=== PATIENT | female | born 1945 | race African-American/Black ===

== ENCOUNTER 2018-08-24 12:47 | Inpatient (IN) | payer MEDICARE, BC ==
[~2018-08-24] VITALS: Ht 165 cm; Wt 85.7 kg
[2018-08-24] VITALS (31 sets, daily range): BP systolic 96–147; BP diastolic 69–88
[2018-08-24] MEDS ORDERED: SUCCINYLCHOLINE CHLORIDE 200MG/10ML IV ONE ×2 (13:11→13:15)
[2018-08-24] MEDS ORDERED: ONDANSETRON HCL 4MG/2ML INJ ONE (13:14)
[2018-08-24] MEDS ORDERED: SODIUM CHLORIDE 0.9% 1,000 ML IV ONE (13:15)
[2018-08-24 13:46] LABS: BASOPHILS % 0.1 % (0.0-2.0); HEMATOCRIT. 39.7 % (36.0-48.0); HEMOGLOBIN. 13.2 g/dL (12.0-16.0); LYMPHOCYTES % 15.8 % (20.0-50.0); MEAN CORPUSCULAR HEMOGLOBIN 27.4 pg (28.0-32.0); MEAN CORPUSCULAR VOLUME 82.4 fL (81.0-99.0); MEAN PLATELET VOLUME 10.2 fl (7.4-10.4); MONOCYTES % 0.7 % (2.0-8.0); NEUTROPHILS % 83.4 % (40.0-76.0); PLATELET 207 x1000/uL (130-400); RED BLOOD CELL COUNT 4.81 mill/uL (4.2-5.4); RED CELL DISTRIBUTION WIDTH 14.7 % (11.6-14.6)
[2018-08-24 13:49] LABS: INR 1.1; PROTHROMBIN TIME 11.3 sec (9.6-11.0)
[2018-08-24 13:52] LABS: CHLORIDE 104 mEq/L (98-107)
[2018-08-24 13:56] LABS: ETHANOL BLOOD < 10 mg/dL
[2018-08-24 14:14] LABS: CREATINE KINASE 2143 IU/L (26-192)
[2018-08-24 14:27] LABS: CLARITY URINE CLEAR (CLEAR); COLOR URINE YELLOW (YELLOW); KETONES URINE NEGATIVE (NEGATIVE); LEUKOCYTE ESTERASE URINE NEGATIVE (NEGATIVE); NITRITE URINE NEGATIVE (NEGATIVE); OCCULT BLOOD URINE 3+ (NEGATIVE); PH URINE 5.5 (4.5-8.0); PROTEIN URINE 1+ (NEGATIVE); SPECIFIC GRAVITY URINE 1.012 (1.005-1.030); UROBILINOGEN URINE 0.2 E.U./dL (0.2-1.0)
[2018-08-24] MEDS ORDERED: ONDANSETRON HCL 4MG/2ML INJ IV PRN (14:30)
[2018-08-24] MEDS ORDERED: HYDROCODONE/ACETAMINOPHEN 5/325MG TABLET PO PRN (14:30)
[2018-08-24] MEDS ORDERED: NA PHOS,M-B/NA PHOS,DI-BA ENEMA 118ML PR PRN (14:30)
[2018-08-24] MEDS ORDERED: ACETAMINOPHEN 325MG TABLET PO PRN (14:30)
[2018-08-24] MEDS ORDERED: MORPHINE SULFATE 4 MG/ML CPJ (NOT FOR IM USE) IV PRN (14:30)
[2018-08-24] MEDS ORDERED: IPRATROPIUM/ALBUTEROL 0.5-3(2.5)MG/3ML NEB INH PRN (14:30)
[2018-08-24] MEDS ORDERED: DIPHENHYDRAMINE 50MG/ML VIAL IV PRN (14:30)
[2018-08-24] MEDS ORDERED: LORAZEPAM 2MG/ML CPJ IV PRN (14:30)
[2018-08-24] MEDS ORDERED: LEVOFLOXACIN 500MG PREMIX 100 ML IV SCH (14:30)
[2018-08-24] MEDS ORDERED: GUAIFENESIN 200MG/10ML SUGAR FREE UDC PO PRN (14:30)
[2018-08-24] MEDS ORDERED: MAGNESIUM/ALUMINUM HYDROXIDE/SIMETHICONE 30ML UDC PO PRN (14:30)
[2018-08-24 15:14] LABS: *AMPHETAMINES SCREEN URINE NEGATIVE (NEGATIVE); *BARBITURATES SCREEN URINE NEGATIVE (NEGATIVE); *BENZODIAZEPINES SCREEN URINE NEGATIVE (NEGATIVE)
[2018-08-24 15:15] LABS: *COCAINE SCREEN URINE NEGATIVE (NEGATIVE); CANNABINOID URINE SCREEN NEGATIVE (NEGATIVE); METHADONE URINE SCREEN NEGATIVE (NEGATIVE); OPIATES URINE SCREEN NEGATIVE (NEGATIVE); PHENCYCLIDINE URINE SCREEN NEGATIVE (NEGATIVE)
[2018-08-24 15:24] LABS: BG BASE EXCESS -1.4 mmol/L (-2.0-2.0); BG CARBOXYHEMOGLOBIN 0.3 % (0.5-1.5); BG DEOXYHEMOGLOBIN 0.6 % (0.0-5.0); BG FRACTION INSPIRED OXYGEN 100; BG HCO3 ACT 23.2 mmol/L (22.0-26.0); BG METHEMOGLOBIN 0.3 % (0.0-1.5); BG OXYGEN SATURATION 99.4 % (92.0-98.5); BG OXYHEMOGLOBIN 98.8 % (94.0-97.0); BG PCO2 39.1 mmHg (35.0-45.0); BG PH 7.392 (7.350-7.450); BG PO2 300.1 mmHg (75.0-100.0); BG SAMPLE SITE RIGHT BRACHIAL; BG TIDAL VOLUME(mL) 500 mL; BG TOTAL HEMOGLOBIN 13.9 g/dL (12.0-18.0); BG VENT MODE VENT - A/C; BG VENT RATE 14 set
[2018-08-24] MEDS ORDERED: PIPERACILLIN/TAZ 3.375G PREMIX 50 ML IV SCH (15:30)
[2018-08-24] MEDS: DEXT 5%/0.45% NACL 1000ML 1,000 ML IV SCH (16:59)
[2018-08-24] MEDS ORDERED: FOLIC ACID 1 MG, THIAMINE HCL 100 MG, MVI, ADULT NO.1 10 ML in DEXTROSE 5% WATER 1,000 ML IV SCH ×4 (17:00)
[2018-08-24] MEDS: PIPERACILLIN/TAZ 2.25G PREMIX 50 ML IV SCH ×2 (17:22→23:00)
[2018-08-24] MEDS: PANTOPRAZOLE SODIUM 40 MG/VIAL IV SCH (17:23)
[2018-08-24] MEDS ORDERED: LEVOFLOXACIN 500MG PREMIX 100 ML IV NR (18:00)
[2018-08-24] MEDS: ENOXAPARIN 40MG/0.4ML SYR SUBCUT SCH (20:34)
[2018-08-24] MEDS: PROPOFOL 10MG/ML 100ML 100 ML IV PRN (20:35)
[2018-08-24] MEDS: IPRATROPIUM/ALBUTEROL 0.5-3(2.5)MG/3ML NEB HHN SCH (21:03)
[2018-08-25] VITALS (94 sets, daily range): BP systolic 103–157; BP diastolic 67–98
[2018-08-25] MEDS: DEXT 5%/0.45% NACL 1000ML 1,000 ML IV SCH (02:30)
[2018-08-25] MEDS: IPRATROPIUM/ALBUTEROL 0.5-3(2.5)MG/3ML NEB HHN SCH ×4 (04:15→20:17)
[2018-08-25] MEDS: PROPOFOL 10MG/ML 100ML 100 ML IV PRN ×2 (04:17→17:48)
[2018-08-25 05:39] LABS: HEMATOCRIT. 40.9 % (36.0-48.0); HEMOGLOBIN. 13.3 g/dL (12.0-16.0); MEAN CORPUSCULAR HEMOGLOBIN 27.2 pg (28.0-32.0); MEAN CORPUSCULAR VOLUME 83.2 fL (81.0-99.0); MEAN PLATELET VOLUME 10.2 fl (7.4-10.4); MONOCYTES % 6.6 % (2.0-8.0); NEUTROPHILS % 85.4 % (40.0-76.0); PLATELET 178 x1000/uL (130-400); RED BLOOD CELL COUNT 4.91 mill/uL (4.2-5.4); RED CELL DISTRIBUTION WIDTH 14.6 % (11.6-14.6)
[2018-08-25] MEDS: PIPERACILLIN/TAZ 2.25G PREMIX 50 ML IV SCH ×4 (05:43→22:11)
[2018-08-25 05:45] LABS: CHLORIDE 102 mEq/L (98-107)
[2018-08-25 05:52] LABS: LDL CHOLESTEROL 113 mg/dL (5-100)
[2018-08-25 05:53] LABS: HDL CHOLESTEROL 56 mg/dL (40-59)
[2018-08-25 05:54] LABS: T4 FREE 1.47 ng/dL (0.76-1.46)
[2018-08-25 09:08] LABS: BG BASE EXCESS -0.8 mmol/L (-2.0-2.0); BG CARBOXYHEMOGLOBIN 0.3 % (0.5-1.5); BG DEOXYHEMOGLOBIN 1.9 % (0.0-5.0); BG FRACTION INSPIRED OXYGEN 40; BG HCO3 ACT 23.4 mmol/L (22.0-26.0); BG METHEMOGLOBIN 0.2 % (0.0-1.5); BG OXYGEN SATURATION 98.1 % (92.0-98.5); BG OXYHEMOGLOBIN 97.6 % (94.0-97.0); BG PCO2 37.2 mmHg (35.0-45.0); BG PH 7.417 (7.350-7.450); BG SAMPLE SITE RIGHT RADIAL; BG TIDAL VOLUME(mL) 500 mL; BG TOTAL HEMOGLOBIN 12.2 g/dL (12.0-18.0); BG VENT MODE VENT - A/C; BG VENT RATE 14 set
[2018-08-25] MEDS: PANTOPRAZOLE SODIUM 40 MG/VIAL IV SCH (09:33)
[2018-08-25] MEDS: ASPIRIN 81MG EC TABLET PO SCH (09:34)
[2018-08-25] MEDS ORDERED: SODIUM CHLORIDE 0.9% 500 ML IV ONE (10:15)
[2018-08-25] MEDS ORDERED: LIDOCAINE HCL 1% 20ML VIAL (Pyxis) INJ ONE (13:09)
[2018-08-25 13:56] LABS: CREATINE KINASE 5257 IU/L (26-192)
[2018-08-25] MEDS ORDERED: SODIUM BICARBONATE 5MEQ SYR 50 MEQ in DEXT 5%/0.45% NACL 1000ML 1,000 ML IV SCH (15:52)
[2018-08-25] MEDS: SODIUM BICARBONATE 50 MEQ in DEXT 5%/0.45% NACL 1000ML 1,000 ML IV SCH (17:43)
[2018-08-25] MEDS ORDERED: LEVOFLOXACIN 250MG PREMIX 50 ML IV SCH (18:00)
[2018-08-25] MEDS ORDERED: FOLIC ACID 1 MG, THIAMINE HCL 100 MG, MVI, ADULT NO.1 10 ML in DEXTROSE 5% WATER 1,000 ML IV SCH ×4 (18:00)
[2018-08-25] MEDS: ENOXAPARIN 40MG/0.4ML SYR SUBCUT SCH (20:02)
[2018-08-25] MEDS ORDERED: METOPROLOL TARTRATE 5MG/5ML VIAL IV NR (22:00)
[2018-08-26] VITALS (97 sets, daily range): BP systolic 109–192; BP diastolic 63–162
[2018-08-26] MEDS: IPRATROPIUM/ALBUTEROL 0.5-3(2.5)MG/3ML NEB HHN SCH ×7 (00:08→21:25)
[2018-08-26] MEDS: PROPOFOL 10MG/ML 100ML 100 ML IV PRN ×4 (02:02→19:03)
[2018-08-26] MEDS: SODIUM BICARBONATE 50 MEQ in DEXT 5%/0.45% NACL 1000ML 1,000 ML IV SCH ×3 (03:28→23:43)
[2018-08-26 05:47] LABS: BASOPHILS % 0.1 % (0.0-2.0); HEMATOCRIT. 34.5 % (36.0-48.0); HEMOGLOBIN. 11.2 g/dL (12.0-16.0); LYMPHOCYTES % 8.2 % (20.0-50.0); MEAN CORPUSCULAR VOLUME 83.1 fL (81.0-99.0); MEAN PLATELET VOLUME 10.3 fl (7.4-10.4); MONOCYTES % 7.8 % (2.0-8.0); NEUTROPHILS % 83.9 % (40.0-76.0); PLATELET 147 x1000/uL (130-400); RED BLOOD CELL COUNT 4.16 mill/uL (4.2-5.4); RED CELL DISTRIBUTION WIDTH 15.1 % (11.6-14.6)
[2018-08-26] MEDS: METOPROLOL TARTRATE 5MG/5ML VIAL IV SCH ×4 (05:58→23:42)
[2018-08-26] MEDS: PIPERACILLIN/TAZ 2.25G PREMIX 50 ML IV SCH ×4 (05:58→23:41)
[2018-08-26] MEDS ORDERED: METOPROLOL TARTRATE 5MG/5ML VIAL IV SCH (06:00)
[2018-08-26 07:00] LABS: VITAMIN B12 SERUM 1437 pg/mL (211-911)
[2018-08-26 08:09] LABS: BG BASE EXCESS 4.8 mmol/L (-2.0-2.0); BG CARBOXYHEMOGLOBIN 0.2 % (0.5-1.5); BG DEOXYHEMOGLOBIN 0.9 % (0.0-5.0); BG FRACTION INSPIRED OXYGEN 50; BG HCO3 ACT 29.4 mmol/L (22.0-26.0); BG METHEMOGLOBIN 0.4 % (0.0-1.5); BG OXYGEN SATURATION 99.1 % (92.0-98.5); BG OXYHEMOGLOBIN 98.5 % (94.0-97.0); BG PCO2 43.3 mmHg (35.0-45.0); BG PH 7.449 (7.350-7.450); BG SAMPLE SITE LEFT RADIAL; BG TIDAL VOLUME(mL) 500 mL; BG TOTAL HEMOGLOBIN 11.6 g/dL (12.0-18.0); BG VENT MODE VENT - A/C; BG VENT RATE 14 set
[2018-08-26] MEDS: FOLIC ACID 1MG TABLET PO SCH (08:10)
[2018-08-26] MEDS: DOCUSATE SODIUM 100MG CAPSULE PO PRN (08:10)
[2018-08-26] MEDS: MULTIVITAMINS,THER W-MINERALS TABLET PO SCH (08:10)
[2018-08-26] MEDS: THIAMINE HCL 100MG TABLET PO SCH (08:10)
[2018-08-26] MEDS: PANTOPRAZOLE SODIUM 40 MG/VIAL IV SCH (08:10)
[2018-08-26] MEDS: ASPIRIN 81MG EC TABLET PO SCH (08:10)
[2018-08-26] MEDS: DILTIAZEM HCL 30MG TABLET NG SCH ×3 (13:00→23:42)
[2018-08-26] MEDS ORDERED: KCL 20MEQ/100ML PREMIX 100 ML IV SCH (14:00)
[2018-08-26] MEDS: ENOXAPARIN 40MG/0.4ML SYR SUBCUT SCH (20:38)
[2018-08-27] VITALS (99 sets, daily range): BP systolic 103–185; BP diastolic 59–123
[2018-08-27] MEDS: IPRATROPIUM/ALBUTEROL 0.5-3(2.5)MG/3ML NEB HHN SCH ×5 (00:31→15:25)
[2018-08-27] MEDS: PROPOFOL 10MG/ML 100ML 100 ML IV PRN ×5 (03:13→23:43)
[2018-08-27 04:51] LABS: BASOPHILS % 0.1 % (0.0-2.0); EOSINOPHILS % 0.1 % (0.0-5.0); HEMATOCRIT. 29.8 % (36.0-48.0); HEMOGLOBIN. 9.8 g/dL (12.0-16.0); LYMPHOCYTES % 10.8 % (20.0-50.0); MEAN CORPUSCULAR HEMOGLOBIN 27.6 pg (28.0-32.0); MEAN CORPUSCULAR VOLUME 83.8 fL (81.0-99.0); MEAN PLATELET VOLUME 10.8 fl (7.4-10.4); MONOCYTES % 7.5 % (2.0-8.0); NEUTROPHILS % 81.5 % (40.0-76.0); PLATELET 119 x1000/uL (130-400); RED BLOOD CELL COUNT 3.55 mill/uL (4.2-5.4); RED CELL DISTRIBUTION WIDTH 14.9 % (11.6-14.6)
[2018-08-27 05:08] LABS: CHLORIDE 113 mEq/L (98-107)
[2018-08-27] MEDS: DILTIAZEM HCL 30MG TABLET NG SCH ×3 (05:50→18:41)
[2018-08-27] MEDS: PIPERACILLIN/TAZ 2.25G PREMIX 50 ML IV SCH ×2 (05:50→11:32)
[2018-08-27] MEDS: METOPROLOL TARTRATE 5MG/5ML VIAL IV SCH ×3 (05:51→18:38)
[2018-08-27] MEDS: MULTIVITAMINS,THER W-MINERALS TABLET PO SCH (08:14)
[2018-08-27] MEDS: PANTOPRAZOLE SODIUM 40 MG/VIAL IV SCH (08:14)
[2018-08-27] MEDS: FOLIC ACID 1MG TABLET PO SCH (08:14)
[2018-08-27] MEDS: THIAMINE HCL 100MG TABLET PO SCH (08:14)
[2018-08-27] MEDS: ASPIRIN 81MG EC TABLET PO SCH (08:14)
[2018-08-27 08:51] LABS: BG CARBOXYHEMOGLOBIN 0.3 % (0.5-1.5); BG FRACTION INSPIRED OXYGEN 45; BG METHEMOGLOBIN 0.4 % (0.0-1.5); BG OXYHEMOGLOBIN 98.3 % (94.0-97.0); BG PCO2 38.6 mmHg (35.0-45.0); BG PH 7.462 (7.350-7.450); BG PO2 178.6 mmHg (75.0-100.0); BG SAMPLE SITE LEFT RADIAL; BG TIDAL VOLUME(mL) 500 mL; BG VENT MODE VENT - A/C; BG VENT RATE 14 set
[2018-08-27] MEDS ORDERED: KCL 20MEQ/100ML PREMIX 100 ML IV NR (13:00)
[2018-08-27] MEDS: SODIUM BICARBONATE 50 MEQ in DEXT 5%/0.45% NACL 1000ML 1,000 ML IV SCH ×2 (14:02→23:39)
[2018-08-27] MEDS ORDERED: DILTIAZEM HCL 5MG/ML 5ML VIAL IV NR (15:15)
[2018-08-27] MEDS ORDERED: DILTIAZEM HCL 125 MG in DEXT 5% WATER 100 ML IV PRN (15:15)
[2018-08-27] MEDS: PIPERACILLIN/TAZ 3.375G PREMIX 50 ML IV SCH (18:38)
[2018-08-27] MEDS: ENOXAPARIN 40MG/0.4ML SYR SUBCUT SCH (21:31)
[2018-08-28] VITALS (88 sets, daily range): BP systolic 106–193; BP diastolic 61–105
[2018-08-28] MEDS: IPRATROPIUM/ALBUTEROL 0.5-3(2.5)MG/3ML NEB HHN SCH ×6 (00:56→21:32)
[2018-08-28] MEDS: DILTIAZEM HCL 30MG TABLET NG SCH ×3 (01:00→11:35)
[2018-08-28] MEDS: PIPERACILLIN/TAZ 3.375G PREMIX 50 ML IV SCH ×2 (01:12→06:18)
[2018-08-28] MEDS: METOPROLOL TARTRATE 5MG/5ML VIAL IV SCH ×5 (01:17→18:20)
[2018-08-28] MEDS: PROPOFOL 10MG/ML 100ML 100 ML IV PRN ×2 (03:01→07:12)
[2018-08-28 05:40] LABS: BASOPHILS % 0.5 % (0.0-2.0); EOSINOPHILS % 1.4 % (0.0-5.0); HEMATOCRIT. 31.8 % (36.0-48.0); HEMOGLOBIN. 10.4 g/dL (12.0-16.0); MEAN CORPUSCULAR HEMOGLOBIN 27.4 pg (28.0-32.0); MEAN CORPUSCULAR VOLUME 84.2 fL (81.0-99.0); MEAN PLATELET VOLUME 10.2 fl (7.4-10.4); MONOCYTES % 8.4 % (2.0-8.0); NEUTROPHILS % 69.7 % (40.0-76.0); PLATELET 114 x1000/uL (130-400); RED BLOOD CELL COUNT 3.78 mill/uL (4.2-5.4); RED CELL DISTRIBUTION WIDTH 14.9 % (11.6-14.6)
[2018-08-28 05:47] LABS: CHLORIDE 109 mEq/L (98-107)
[2018-08-28] MEDS: SODIUM BICARBONATE 50 MEQ in DEXT 5%/0.45% NACL 1000ML 1,000 ML IV SCH (06:54)
[2018-08-28 09:01] LABS: BG BASE EXCESS 3.4 mmol/L (-2.0-2.0); BG DEOXYHEMOGLOBIN 1.2 % (0.0-5.0); BG FRACTION INSPIRED OXYGEN 40; BG HCO3 ACT 28.2 mmol/L (22.0-26.0); BG METHEMOGLOBIN 0.3 % (0.0-1.5); BG OXYGEN SATURATION 98.8 % (92.0-98.5); BG OXYHEMOGLOBIN 98.5 % (94.0-97.0); BG PCO2 43.7 mmHg (35.0-45.0); BG PH 7.428 (7.350-7.450); BG PO2 147.7 mmHg (75.0-100.0); BG SAMPLE SITE RIGHT RADIAL; BG TIDAL VOLUME(mL) 500 mL; BG TOTAL HEMOGLOBIN 11.7 g/dL (12.0-18.0); BG VENT MODE VENT - A/C; BG VENT RATE 14 set
[2018-08-28] MEDS: PANTOPRAZOLE SODIUM 40 MG/VIAL IV SCH (09:24)
[2018-08-28] MEDS: THIAMINE HCL 100MG TABLET PO SCH (09:25)
[2018-08-28] MEDS: DOCUSATE SODIUM 100MG CAPSULE PO PRN (09:25)
[2018-08-28] MEDS: CLONIDINE 0.1MG TABLET PO PRN ×2 (09:25→18:19)
[2018-08-28] MEDS: MULTIVITAMINS,THER W-MINERALS TABLET PO SCH (09:25)
[2018-08-28] MEDS: FOLIC ACID 1MG TABLET PO SCH (09:25)
[2018-08-28] MEDS: ASPIRIN 81MG EC TABLET PO SCH (09:25)
[2018-08-28] MEDS: LEVOFLOXACIN 750MG PREMIX 150 ML IV SCH (11:26)
[2018-08-28] MEDS: DEXT 5%/0.45% NACL 1000ML 1,000 ML IV SCH (11:26)
[2018-08-28 11:36] LABS: BG BASE EXCESS 3.9 mmol/L (-2.0-2.0); BG CARBOXYHEMOGLOBIN 0.3 % (0.5-1.5); BG DEOXYHEMOGLOBIN 1.4 % (0.0-5.0); BG FRACTION INSPIRED OXYGEN 40; BG HCO3 ACT 28.1 mmol/L (22.0-26.0); BG METHEMOGLOBIN 0.2 % (0.0-1.5); BG OXYGEN SATURATION 98.6 % (92.0-98.5); BG OXYHEMOGLOBIN 98.1 % (94.0-97.0); BG PCO2 40.8 mmHg (35.0-45.0); BG PH 7.456 (7.350-7.450); BG PO2 130.3 mmHg (75.0-100.0); BG PRESSURE SUPPORT 8; BG SAMPLE SITE RIGHT RADIAL; BG TOTAL HEMOGLOBIN 10.9 g/dL (12.0-18.0); BG VENT MODE VENT - CPAP
[2018-08-28 12:11] LABS: CREATINE KINASE 1558 IU/L (26-192)
[2018-08-28 16:36] LABS: BG BASE EXCESS 5.5 mmol/L (-2.0-2.0); BG CARBOXYHEMOGLOBIN 0.8 % (0.5-1.5); BG DEOXYHEMOGLOBIN 1.7 % (0.0-5.0); BG FRACTION INSPIRED OXYGEN 32; BG METHEMOGLOBIN 0.2 % (0.0-1.5); BG OXYGEN SATURATION 98.3 % (92.0-98.5); BG OXYHEMOGLOBIN 97.3 % (94.0-97.0); BG PCO2 43.1 mmHg (35.0-45.0); BG PO2 113.7 mmHg (75.0-100.0); BG SAMPLE SITE RIGHT RADIAL; BG TOTAL HEMOGLOBIN 11.6 g/dL (12.0-18.0); BG VENT MODE NASAL CANNULA
[2018-08-28] MEDS: DILTIAZEM HCL 90MG TABLET NG SCH ×2 (21:22→22:20)
[2018-08-28] MEDS: ENOXAPARIN 40MG/0.4ML SYR SUBCUT SCH (21:23)
[2018-08-28] MEDS: RACEPINEPHRINE 2.25% 0.5ML NEB VIAL HHN SCH (21:35)
[2018-08-29] VITALS (47 sets, daily range): BP systolic 113–189; BP diastolic 72–112
[2018-08-29] MEDS: IPRATROPIUM/ALBUTEROL 0.5-3(2.5)MG/3ML NEB HHN SCH ×5 (00:19→22:05)
[2018-08-29] MEDS: RACEPINEPHRINE 2.25% 0.5ML NEB VIAL HHN SCH ×2 (00:19→04:42)
[2018-08-29] MEDS: METOPROLOL TARTRATE 5MG/5ML VIAL IV SCH ×2 (00:29→06:00)
[2018-08-29] MEDS: DEXT 5%/0.45% NACL 1000ML 1,000 ML IV SCH ×2 (01:00→14:31)
[2018-08-29 05:41] LABS: BASOPHILS % 0.4 % (0.0-2.0); EOSINOPHILS % 1.3 % (0.0-5.0); LYMPHOCYTES % 18.5 % (20.0-50.0); MEAN CORPUSCULAR HEMOGLOBIN 27.6 pg (28.0-32.0); MEAN PLATELET VOLUME 10.5 fl (7.4-10.4); MONOCYTES % 7.3 % (2.0-8.0); NEUTROPHILS % 72.5 % (40.0-76.0); PLATELET 125 x1000/uL (130-400); RED BLOOD CELL COUNT 3.61 mill/uL (4.2-5.4); RED CELL DISTRIBUTION WIDTH 14.8 % (11.6-14.6)
[2018-08-29] MEDS: DILTIAZEM HCL 90MG TABLET NG SCH (06:00)
[2018-08-29 06:32] LABS: CHLORIDE 107 mEq/L (98-107)
[2018-08-29] MEDS: ASPIRIN 81MG EC TABLET PO SCH (08:27)
[2018-08-29] MEDS: THIAMINE HCL 100MG TABLET PO SCH (08:27)
[2018-08-29] MEDS: MULTIVITAMINS,THER W-MINERALS TABLET PO SCH (08:28)
[2018-08-29] MEDS: PANTOPRAZOLE SODIUM 40 MG/VIAL IV SCH (08:28)
[2018-08-29] MEDS: FOLIC ACID 1MG TABLET PO SCH (08:28)
[2018-08-29] MEDS: CLONIDINE 0.1MG TABLET PO PRN ×2 (09:09→15:16)
[2018-08-29] MEDS ORDERED: METOPROLOL TARTRATE 25MG TABLET PO NR (10:15)
[2018-08-29] MEDS: LEVOFLOXACIN 750MG PREMIX 150 ML IV SCH (10:32)
[2018-08-29] MEDS: DILTIAZEM HCL 90MG TABLET PO SCH ×2 (11:32→19:13)
[2018-08-29] MEDS ORDERED: DILTIAZEM HCL 90MG TABLET NG SCH (12:00)
[2018-08-29] MEDS ORDERED: HYDRALAZINE HCL 50MG TABLET PO NR (14:30)
[2018-08-29] MEDS: DOCUSATE SODIUM 100MG CAPSULE PO PRN (15:17)
[2018-08-29] MEDS ORDERED: AMLO10TA80 MT (15:23)
[2018-08-29] MEDS ORDERED: METO-411 MT (15:24)
[2018-08-29] MEDS ORDERED: SPIR50TA5 MT (15:26)
[2018-08-29] MEDS ORDERED: OLME20TA22 MT (15:29)
[2018-08-29] MEDS ORDERED: LOSARTAN POTASSIUM 50 MG TABLET PO ONE (15:45)
[2018-08-29] MEDS ORDERED: METOPROLOL TARTRATE 25MG TABLET PO SCH (21:00)
[2018-08-29] MEDS: HYDRALAZINE HCL 50MG TABLET PO SCH (21:06)
[2018-08-29] MEDS: ENOXAPARIN 40MG/0.4ML SYR SUBCUT SCH (21:06)
[2018-08-29] MEDS: METOPROLOL TARTRATE 25MG TABLET PO SCH (21:06)
[2018-08-30] VITALS (7 sets, daily range): BP systolic 127–189; BP diastolic 62–105
[2018-08-30] MEDS: DILTIAZEM HCL 90MG TABLET PO SCH ×4 (00:19→19:49)
[2018-08-30] MEDS: IPRATROPIUM/ALBUTEROL 0.5-3(2.5)MG/3ML NEB HHN SCH ×6 (00:44→20:53)
[2018-08-30] MEDS: DEXT 5%/0.45% NACL 1000ML 1,000 ML IV SCH ×2 (05:24→19:49)
[2018-08-30] MEDS: HYDRALAZINE HCL 50MG TABLET PO SCH ×3 (05:24→21:27)
[2018-08-30 06:30] LABS: CHLORIDE 104 mEq/L (98-107)
[2018-08-30 06:59] LABS: BASOPHILS % 0.3 % (0.0-2.0); EOSINOPHILS % 2.1 % (0.0-5.0); HEMATOCRIT. 28.4 % (36.0-48.0); HEMOGLOBIN. 9.4 g/dL (12.0-16.0); LYMPHOCYTES % 17.6 % (20.0-50.0); MEAN CORPUSCULAR HEMOGLOBIN 27.4 pg (28.0-32.0); MEAN CORPUSCULAR VOLUME 82.9 fL (81.0-99.0); MONOCYTES % 6.7 % (2.0-8.0); NEUTROPHILS % 73.3 % (40.0-76.0); PLATELET 123 x1000/uL (130-400); RED BLOOD CELL COUNT 3.42 mill/uL (4.2-5.4); RED CELL DISTRIBUTION WIDTH 14.5 % (11.6-14.6)
[2018-08-30] MEDS: PANTOPRAZOLE SODIUM 40 MG/VIAL IV SCH (08:52)
[2018-08-30] MEDS: LOSARTAN POTASSIUM 50 MG TABLET PO SCH (08:54)
[2018-08-30] MEDS: ASPIRIN 81MG EC TABLET PO SCH (08:54)
[2018-08-30] MEDS: MULTIVITAMINS,THER W-MINERALS TABLET PO SCH (08:54)
[2018-08-30] MEDS: METOPROLOL TARTRATE 25MG TABLET PO SCH ×2 (08:54→21:27)
[2018-08-30] MEDS: FOLIC ACID 1MG TABLET PO SCH (08:54)
[2018-08-30] MEDS: THIAMINE HCL 100MG TABLET PO SCH (08:54)
[2018-08-30 09:37] LABS: CREATINE KINASE 743 IU/L (26-192)
[2018-08-30] MEDS: LEVOFLOXACIN 750MG PREMIX 150 ML IV SCH (11:22)
[2018-08-30] MEDS ORDERED: POTASSIUM CHLORIDE 20MEQ TABLET SR PO SCH (14:15)
[2018-08-30] MEDS: ENOXAPARIN 40MG/0.4ML SYR SUBCUT SCH (21:27)
[2018-08-31] VITALS: BP 150/88
[2018-08-31] MEDS: IPRATROPIUM/ALBUTEROL 0.5-3(2.5)MG/3ML NEB HHN SCH ×6 (00:57→20:36)
[2018-08-31] MEDS: DILTIAZEM HCL 90MG TABLET PO SCH ×3 (00:57→11:48)
[2018-08-31 04:00] VITALS: BP 114/78
[2018-08-31 06:33] LABS: BASOPHILS % 0.3 % (0.0-2.0); EOSINOPHILS % 1.3 % (0.0-5.0); HEMATOCRIT. 28.1 % (36.0-48.0); HEMOGLOBIN. 9.4 g/dL (12.0-16.0); MEAN CORPUSCULAR HEMOGLOBIN 27.5 pg (28.0-32.0); MEAN CORPUSCULAR VOLUME 82.6 fL (81.0-99.0); MEAN PLATELET VOLUME 9.8 fl (7.4-10.4); MONOCYTES % 7.4 % (2.0-8.0); PLATELET 145 x1000/uL (130-400); RED CELL DISTRIBUTION WIDTH 14.4 % (11.6-14.6)
[2018-08-31] MEDS: HYDRALAZINE HCL 50MG TABLET PO SCH ×3 (06:33→21:10)
[2018-08-31] MEDS: DEXT 5%/0.45% NACL 1000ML 1,000 ML IV SCH ×2 (06:45→21:13)
[2018-08-31 07:55] LABS: CHLORIDE 106 mEq/L (98-107)
[2018-08-31 08:00] VITALS: BP 156/86
[2018-08-31 08:07] LABS: CREATINE KINASE 409 IU/L (26-192)
[2018-08-31] MEDS: PANTOPRAZOLE SODIUM 40 MG/VIAL IV SCH (09:26)
[2018-08-31] MEDS: MULTIVITAMINS,THER W-MINERALS TABLET PO SCH (09:27)
[2018-08-31] MEDS: METOPROLOL TARTRATE 25MG TABLET PO SCH ×2 (09:27→21:11)
[2018-08-31] MEDS: LOSARTAN POTASSIUM 50 MG TABLET PO SCH (09:27)
[2018-08-31] MEDS: ASPIRIN 81MG EC TABLET PO SCH (09:27)
[2018-08-31] MEDS: FOLIC ACID 1MG TABLET PO SCH (09:27)
[2018-08-31] MEDS: THIAMINE HCL 100MG TABLET PO SCH (09:27)
[2018-08-31] MEDS: LEVOFLOXACIN 750MG PREMIX 150 ML IV SCH (11:48)
[2018-08-31 12:00] VITALS: BP 157/86
[2018-08-31 16:00] VITALS: BP 151/81
[2018-08-31] MEDS: DOCUSATE SODIUM 100MG CAPSULE PO PRN (16:12)
[2018-08-31 20:00] VITALS: BP 149/82
[2018-08-31] MEDS: ENOXAPARIN 40MG/0.4ML SYR SUBCUT SCH (21:09)
[2018-09-01] VITALS: BP 162/87
[2018-09-01] MEDS: IPRATROPIUM/ALBUTEROL 0.5-3(2.5)MG/3ML NEB HHN SCH ×6 (00:25→21:00)
[2018-09-01] MEDS: DILTIAZEM HCL 90MG TABLET PO SCH ×5 (02:47→18:15)
[2018-09-01 04:00] VITALS: BP 159/68
[2018-09-01] MEDS: HYDRALAZINE HCL 50MG TABLET PO SCH ×3 (06:01→21:38)
[2018-09-01 08:00] VITALS: BP 117/52
[2018-09-01] MEDS: ASPIRIN 81MG EC TABLET PO SCH (09:00)
[2018-09-01] MEDS: LOSARTAN POTASSIUM 50 MG TABLET PO SCH (09:01)
[2018-09-01] MEDS: MULTIVITAMINS,THER W-MINERALS TABLET PO SCH (09:01)
[2018-09-01] MEDS: FOLIC ACID 1MG TABLET PO SCH (09:01)
[2018-09-01] MEDS: THIAMINE HCL 100MG TABLET PO SCH (09:01)
[2018-09-01] MEDS: METOPROLOL TARTRATE 25MG TABLET PO SCH ×2 (09:02→21:39)
[2018-09-01] MEDS: PANTOPRAZOLE SODIUM 40 MG/VIAL IV SCH (09:02)
[2018-09-01] MEDS: DOCUSATE SODIUM 100MG CAPSULE PO PRN (09:14)
[2018-09-01] MEDS: LEVOFLOXACIN 750MG PREMIX 150 ML IV SCH (11:47)
[2018-09-01 12:00] VITALS: BP 159/88
[2018-09-01 16:00] VITALS: BP 131/70
[2018-09-01 20:00] VITALS: BP 148/85
[2018-09-01] MEDS: ENOXAPARIN 40MG/0.4ML SYR SUBCUT SCH (21:38)
[2018-09-02] VITALS: BP 139/70
[2018-09-02] MEDS: DILTIAZEM HCL 90MG TABLET PO SCH ×3 (01:06→11:37)
[2018-09-02] MEDS: IPRATROPIUM/ALBUTEROL 0.5-3(2.5)MG/3ML NEB HHN SCH ×5 (01:10→16:14)
[2018-09-02 04:00] VITALS: BP 141/82
[2018-09-02] MEDS: HYDRALAZINE HCL 50MG TABLET PO SCH ×2 (06:21→14:24)
[2018-09-02 08:00] VITALS: BP 150/80
[2018-09-02] MEDS: FOLIC ACID 1MG TABLET PO SCH (08:22)
[2018-09-02] MEDS: MULTIVITAMINS,THER W-MINERALS TABLET PO SCH (08:22)
[2018-09-02] MEDS: ASPIRIN 81MG EC TABLET PO SCH (08:23)
[2018-09-02] MEDS: THIAMINE HCL 100MG TABLET PO SCH (08:23)
[2018-09-02] MEDS: LOSARTAN POTASSIUM 50 MG TABLET PO SCH (08:25)
[2018-09-02] MEDS: METOPROLOL TARTRATE 25MG TABLET PO SCH (08:25)
[2018-09-02] MEDS ORDERED: PANTOPRAZOLE 40MG DR TABLET PO SCH (08:43)
[2018-09-02] MEDS: LEVOFLOXACIN 750MG PREMIX 150 ML IV SCH (11:20)
[2018-09-02 12:00] VITALS: BP 157/66
[2018-09-02 16:00] VITALS: BP 136/78
[2018-09-02 16:16] VITALS: BP 136/78
== END 2018-09-02 17:17 | DRG 870 ==
LOC: ER 12:47 → MICUNO 14:23 → EDBEDREQ 14:27 → EDBEDREQTM 14:27 → ENRESERV 15:18 → 5WST 08-29 17:00
PROVIDERS: ADMIT Internal Medicine; ATTEND Internal Medicine
PROC: 5A1955Z Respiratory Ventilation, Greater than 96 Consecutive Hours (ICD-10-PCS; principal; 2018-08-24)
PROC: 0BH17EZ Insertion of Endotracheal Airway into Trachea, Via Natural or Artificial Opening (ICD-10-PCS; 2018-08-24)
PROC: 02HV33Z Insertion of Infusion Device into Superior Vena Cava, Percutaneous Approach (ICD-10-PCS; 2018-08-25)
PROC: B548ZZA Ultrasonography of Superior Vena Cava, Guidance (ICD-10-PCS; 2018-08-25)
DX: A41.59 Other Gram-negative sepsis (principal); G93.41 Metabolic encephalopathy; J69.0 Pneumonitis due to inhalation of food and vomit; J96.00 Acute respiratory failure, unspecified whether with hypoxia or hypercapnia; N17.0 Acute kidney failure with tubular necrosis; J15.0 Pneumonia due to Klebsiella pneumoniae; M62.82 Rhabdomyolysis; I42.1 Obstructive hypertrophic cardiomyopathy; E87.4 Mixed disorder of acid-base balance; E86.0 Dehydration; R65.20 Severe sepsis without septic shock; D64.9 Anemia, unspecified; E87.6 Hypokalemia; F10.10 Alcohol abuse, uncomplicated; F31.9 Bipolar disorder, unspecified; F43.9 Reaction to severe stress, unspecified; I11.9 Hypertensive heart disease without heart failure; I49.3 Ventricular premature depolarization; R40.2430 Glasgow coma scale score 3-8, unspecified time; R73.9 Hyperglycemia, unspecified; E87.8 Other disorders of electrolyte and fluid balance, not elsewhere classified; Z78.1 Physical restraint status
CPT/HCPCS: 31500; 36415; 36569; 36600; 70551; 71045; 76937; 80048; 80061; 80305; 80320; 82140; 82375; 82550; 82607; 82805; 82962; 83605; 83735; 83880; 84439; 84443; 84478; 84484; 86850; 86900; 87070; 87077; 87186; 92610; 93005; 93306; 94002; 94003; 94640; 94644; 96365; 96368; 96375; 97110; 97116; 97162; 97166; 97530; 97535; 99291; A6261; C1725; C9113; J0330; J1200; J1650; J1956; J2060; J2270; J2405; J2543; J2704; J3411; J3480; J3490; J7030; J7040; J7050; J7060; J7070; J7620; A4315; G0480

== ENCOUNTER 2018-09-02 17:20 | Inpatient (IN) | payer MEDICARE, BC ==
[~2018-09-02] VITALS: Ht 165 cm; Wt 85.7 kg
[2018-09-02] MEDS: IPRATROPIUM/ALBUTEROL 0.5-3(2.5)MG/3ML NEB HHN SCH (00:49)
[~2018-09-02 17:20] MED LIST: AMLO10TA80 MT; METO-411 MT; OLME20TA22 MT; SPIR50TA5 MT
[2018-09-02 20:00] VITALS: BP_SYST 153; BP_SYST 161; BP_DIAS 79; BP_DIAS 90
[2018-09-02] MEDS ORDERED: ACETAMINOPHEN 325MG TABLET PO PRN (20:00)
[2018-09-02] MEDS ORDERED: DIPHENHYDRAMINE 25MG CAPSULE PO PRN (20:00)
[2018-09-02] MEDS ORDERED: GUAIFENESIN 200MG/10ML SUGAR FREE UDC PO PRN (20:00)
[2018-09-02] MEDS ORDERED: ONDANSETRON HCL 4MG TABLET PO PRN (20:00)
[2018-09-02] MEDS ORDERED: NA PHOS,M-B/NA PHOS,DI-BA ENEMA 118ML PR PRN ×2 (20:00→21:00)
[2018-09-02] MEDS ORDERED: MAGNESIUM HYDROXIDE 400MG/5ML 30ML UDC PO PRN (20:00)
[2018-09-02] MEDS ORDERED: CLONIDINE 0.1MG TABLET PO PRN (20:00)
[2018-09-02] MEDS ORDERED: IPRATROPIUM/ALBUTEROL 0.5-3(2.5)MG/3ML NEB HHN PRN (20:00)
[2018-09-02] MEDS: METOPROLOL TARTRATE 50MG TABLET PO SCH (21:17)
[2018-09-02] MEDS: ENOXAPARIN 40MG/0.4ML SYR SUBCUT SCH (21:19)
[2018-09-02] MEDS: HYDRALAZINE HCL 50MG TABLET PO SCH (22:33)
[2018-09-03 00:15] VITALS: BP 134/79
[2018-09-03] MEDS: DILTIAZEM HCL 90MG TABLET PO SCH ×5 (00:15→23:48)
[2018-09-03] MEDS: IPRATROPIUM/ALBUTEROL 0.5-3(2.5)MG/3ML NEB HHN SCH ×4 (04:50→21:20)
[2018-09-03] MEDS: PANTOPRAZOLE 40MG DR TABLET PO SCH (06:08)
[2018-09-03] MEDS: HYDRALAZINE HCL 50MG TABLET PO SCH ×3 (06:09→21:15)
[2018-09-03 07:00] VITALS: BP 140/74
[2018-09-03 07:54] VITALS: BP 140/70
[2018-09-03] MEDS: METOPROLOL TARTRATE 50MG TABLET PO SCH ×2 (08:39→22:41)
[2018-09-03] MEDS: FOLIC ACID 1MG TABLET PO SCH (08:39)
[2018-09-03] MEDS: THIAMINE HCL 100MG TABLET PO SCH (08:39)
[2018-09-03] MEDS: MULTIVITAMINS,THER W-MINERALS TABLET PO SCH (08:39)
[2018-09-03] MEDS: ASPIRIN 81MG EC TABLET PO SCH (08:39)
[2018-09-03] MEDS: LOSARTAN POTASSIUM 50 MG TABLET PO SCH (08:40)
[2018-09-03] MEDS: LEVOFLOXACIN 750MG PREMIX 150 ML IV SCH ×2 (11:00→11:05)
[2018-09-03 12:19] VITALS: BP 120/70
[2018-09-03] MEDS: GUAIFENESIN 600MG ER TABLET PO SCH ×2 (13:41→21:14)
[2018-09-03] MEDS ORDERED: BISACODYL 5MG TABLET PO PRN (15:30)
[2018-09-03] MEDS: DOCUSATE SODIUM 250MG CAPSULE PO SCH (16:14)
[2018-09-03] MEDS: ACETAMINOPHEN 325MG TABLET PO PRN (18:18)
[2018-09-03 20:00] VITALS: BP 135/68
[2018-09-03] MEDS: ENOXAPARIN 40MG/0.4ML SYR SUBCUT SCH (21:15)
[2018-09-04] MEDS: IPRATROPIUM/ALBUTEROL 0.5-3(2.5)MG/3ML NEB HHN SCH ×4 (02:12→19:55)
[2018-09-04] MEDS: DILTIAZEM HCL 90MG TABLET PO SCH ×2 (05:35→12:05)
[2018-09-04 05:52] LABS: BASOPHILS % 0.6 % (0.0-2.0); EOSINOPHILS % 1.4 % (0.0-5.0); HEMATOCRIT. 27.5 % (36.0-48.0); HEMOGLOBIN. 9.1 g/dL (12.0-16.0); LYMPHOCYTES % 22.4 % (20.0-50.0); MEAN CORPUSCULAR HEMOGLOBIN 27.4 pg (28.0-32.0); MEAN CORPUSCULAR VOLUME 82.5 fL (81.0-99.0); MEAN PLATELET VOLUME 8.4 fl (7.4-10.4); MONOCYTES % 11.4 % (2.0-8.0); NEUTROPHILS % 64.2 % (40.0-76.0); PLATELET 275 x1000/uL (130-400); RED BLOOD CELL COUNT 3.34 mill/uL (4.2-5.4); RED CELL DISTRIBUTION WIDTH 14.5 % (11.6-14.6)
[2018-09-04] MEDS: HYDRALAZINE HCL 50MG TABLET PO SCH ×3 (06:00→21:13)
[2018-09-04] MEDS: PANTOPRAZOLE 40MG DR TABLET PO SCH (06:02)
[2018-09-04 06:17] LABS: CHLORIDE 108 mEq/L (98-107)
[2018-09-04 07:55] VITALS: BP 142/74
[2018-09-04] MEDS: ASPIRIN 81MG EC TABLET PO SCH (08:34)
[2018-09-04] MEDS: MULTIVITAMINS,THER W-MINERALS TABLET PO SCH (08:34)
[2018-09-04] MEDS: THIAMINE HCL 100MG TABLET PO SCH (08:34)
[2018-09-04] MEDS: FOLIC ACID 1MG TABLET PO SCH (08:34)
[2018-09-04] MEDS: DOCUSATE SODIUM 100MG CAPSULE PO PRN (08:34)
[2018-09-04] MEDS: GUAIFENESIN 600MG ER TABLET PO SCH ×2 (08:35→21:13)
[2018-09-04] MEDS: LOSARTAN POTASSIUM 50 MG TABLET PO SCH (08:35)
[2018-09-04] MEDS: METOPROLOL TARTRATE 50MG TABLET PO SCH ×2 (08:35→21:14)
[2018-09-04] MEDS: DOCUSATE SODIUM 250MG CAPSULE PO SCH (08:39)
[2018-09-04] MEDS: ACETAMINOPHEN 325MG TABLET PO PRN ×2 (14:01→21:13)
[2018-09-04 20:00] VITALS: BP 148/82
[2018-09-04] MEDS: ENOXAPARIN 40MG/0.4ML SYR SUBCUT SCH (21:14)
[2018-09-05] MEDS: IPRATROPIUM/ALBUTEROL 0.5-3(2.5)MG/3ML NEB HHN SCH ×4 (00:25→20:50)
[2018-09-05] MEDS: ACETAMINOPHEN 325MG TABLET PO PRN (04:53)
[2018-09-05] MEDS: HYDRALAZINE HCL 50MG TABLET PO SCH ×3 (05:03→22:00)
[2018-09-05 07:56] VITALS: BP 148/82
[2018-09-05] MEDS: FAMOTIDINE 20MG TABLET PO SCH ×2 (08:11→21:55)
[2018-09-05] MEDS: METOPROLOL TARTRATE 50MG TABLET PO SCH ×2 (08:12→21:55)
[2018-09-05] MEDS: MULTIVITAMINS,THER W-MINERALS TABLET PO SCH (08:12)
[2018-09-05] MEDS: FOLIC ACID 1MG TABLET PO SCH (08:12)
[2018-09-05] MEDS: DOCUSATE SODIUM 250MG CAPSULE PO SCH (08:12)
[2018-09-05] MEDS: THIAMINE HCL 100MG TABLET PO SCH (08:12)
[2018-09-05] MEDS: GUAIFENESIN 600MG ER TABLET PO SCH ×2 (08:12→21:55)
[2018-09-05] MEDS: ASPIRIN 81MG EC TABLET PO SCH (08:12)
[2018-09-05] MEDS: LOSARTAN POTASSIUM 50 MG TABLET PO SCH (08:12)
[2018-09-05 20:00] VITALS: BP 135/71
[2018-09-05] MEDS: ENOXAPARIN 40MG/0.4ML SYR SUBCUT SCH (21:56)
[2018-09-06] MEDS: IPRATROPIUM/ALBUTEROL 0.5-3(2.5)MG/3ML NEB HHN SCH ×4 (01:38→21:25)
[2018-09-06] MEDS: ACETAMINOPHEN 325MG TABLET PO PRN ×3 (01:41→20:04)
[2018-09-06] MEDS: HYDRALAZINE HCL 50MG TABLET PO SCH ×3 (05:56→22:57)
[2018-09-06 08:09] VITALS: BP 179/85
[2018-09-06] MEDS: DOCUSATE SODIUM 250MG CAPSULE PO SCH (08:34)
[2018-09-06] MEDS: METOPROLOL TARTRATE 50MG TABLET PO SCH ×2 (08:35→20:04)
[2018-09-06] MEDS: LOSARTAN POTASSIUM 50 MG TABLET PO SCH (08:35)
[2018-09-06] MEDS: ASPIRIN 81MG EC TABLET PO SCH (08:35)
[2018-09-06] MEDS: FOLIC ACID 1MG TABLET PO SCH (08:35)
[2018-09-06] MEDS: GUAIFENESIN 600MG ER TABLET PO SCH ×2 (08:35→20:03)
[2018-09-06] MEDS: FAMOTIDINE 20MG TABLET PO SCH ×2 (08:35→20:03)
[2018-09-06] MEDS: MULTIVITAMINS,THER W-MINERALS TABLET PO SCH (08:35)
[2018-09-06] MEDS: THIAMINE HCL 100MG TABLET PO SCH (08:35)
[2018-09-06 20:00] VITALS: BP 175/102
[2018-09-06] MEDS: ENOXAPARIN 40MG/0.4ML SYR SUBCUT SCH (20:03)
[2018-09-06 22:57] VITALS: BP 153/81
[2018-09-07] MEDS: IPRATROPIUM/ALBUTEROL 0.5-3(2.5)MG/3ML NEB HHN SCH ×2 (01:58→19:58)
[2018-09-07] MEDS: HYDRALAZINE HCL 50MG TABLET PO SCH ×3 (06:41→22:05)
[2018-09-07] MEDS: METOPROLOL TARTRATE 50MG TABLET PO SCH ×2 (08:00→22:04)
[2018-09-07] MEDS: FAMOTIDINE 20MG TABLET PO SCH ×2 (08:04→20:44)
[2018-09-07] MEDS: DOCUSATE SODIUM 250MG CAPSULE PO SCH (08:04)
[2018-09-07] MEDS: GUAIFENESIN 600MG ER TABLET PO SCH ×2 (08:04→20:42)
[2018-09-07] MEDS: MULTIVITAMINS,THER W-MINERALS TABLET PO SCH (08:04)
[2018-09-07] MEDS: FOLIC ACID 1MG TABLET PO SCH (08:04)
[2018-09-07] MEDS: ASPIRIN 81MG EC TABLET PO SCH (08:04)
[2018-09-07] MEDS: LOSARTAN POTASSIUM 50 MG TABLET PO SCH ×2 (08:04→20:43)
[2018-09-07] MEDS: THIAMINE HCL 100MG TABLET PO SCH (08:04)
[2018-09-07 08:19] VITALS: BP 167/99
[2018-09-07] MEDS: ACETAMINOPHEN 325MG TABLET PO PRN ×2 (09:35→20:53)
[2018-09-07 20:00] VITALS: BP 154/65
[2018-09-07] MEDS: ENOXAPARIN 40MG/0.4ML SYR SUBCUT SCH (20:42)
[2018-09-07] MEDS: AMLODIPINE 5MG TABLET PO SCH (20:43)
[2018-09-08] MEDS: IPRATROPIUM/ALBUTEROL 0.5-3(2.5)MG/3ML NEB HHN SCH ×4 (02:04→19:44)
[2018-09-08] MEDS: HYDRALAZINE HCL 50MG TABLET PO SCH ×3 (05:33→22:16)
[2018-09-08 07:00] LABS: BASOPHILS % 0.4 % (0.0-2.0); EOSINOPHILS % 1.1 % (0.0-5.0); HEMATOCRIT. 27.5 % (36.0-48.0); HEMOGLOBIN. 9.1 g/dL (12.0-16.0); LYMPHOCYTES % 23.9 % (20.0-50.0); MEAN CORPUSCULAR HEMOGLOBIN 27.6 pg (28.0-32.0); MEAN CORPUSCULAR VOLUME 83.4 fL (81.0-99.0); MEAN PLATELET VOLUME 8.1 fl (7.4-10.4); MONOCYTES % 10.7 % (2.0-8.0); NEUTROPHILS % 63.9 % (40.0-76.0); PLATELET 359 x1000/uL (130-400); RED CELL DISTRIBUTION WIDTH 15.4 % (11.6-14.6)
[2018-09-08 08:00] VITALS: BP 161/96
[2018-09-08] MEDS: THIAMINE HCL 100MG TABLET PO SCH (08:01)
[2018-09-08] MEDS: FAMOTIDINE 20MG TABLET PO SCH ×2 (08:01→20:53)
[2018-09-08] MEDS: AMLODIPINE 5MG TABLET PO SCH (08:01)
[2018-09-08] MEDS: MULTIVITAMINS,THER W-MINERALS TABLET PO SCH (08:01)
[2018-09-08] MEDS: FOLIC ACID 1MG TABLET PO SCH (08:01)
[2018-09-08] MEDS: DOCUSATE SODIUM 250MG CAPSULE PO SCH (08:01)
[2018-09-08] MEDS: GUAIFENESIN 600MG ER TABLET PO SCH ×2 (08:01→20:53)
[2018-09-08] MEDS: ASPIRIN 81MG EC TABLET PO SCH (08:01)
[2018-09-08] MEDS: METOPROLOL TARTRATE 50MG TABLET PO SCH ×2 (08:02→20:54)
[2018-09-08] MEDS: LOSARTAN POTASSIUM 50 MG TABLET PO SCH ×2 (08:02→20:53)
[2018-09-08 08:11] LABS: CHLORIDE 111 mEq/L (98-107)
[2018-09-08 12:00] VITALS: BP 162/93
[2018-09-08] MEDS: NIFEDIPINE XL 60MG TAB PO SCH (12:15)
[2018-09-08 20:00] VITALS: BP 154/79
[2018-09-08] MEDS: ENOXAPARIN 40MG/0.4ML SYR SUBCUT SCH (20:53)
[2018-09-08 21:22] VITALS: BP 154/79
[2018-09-09] MEDS: IPRATROPIUM/ALBUTEROL 0.5-3(2.5)MG/3ML NEB HHN SCH ×4 (02:18→21:03)
[2018-09-09] MEDS: HYDRALAZINE HCL 50MG TABLET PO SCH ×3 (05:59→22:18)
[2018-09-09 07:51] VITALS: BP 128/77
[2018-09-09] MEDS: MULTIVITAMINS,THER W-MINERALS TABLET PO SCH (09:08)
[2018-09-09] MEDS: FAMOTIDINE 20MG TABLET PO SCH ×2 (09:08→20:50)
[2018-09-09] MEDS: GUAIFENESIN 600MG ER TABLET PO SCH ×2 (09:08→20:51)
[2018-09-09] MEDS: DOCUSATE SODIUM 100MG CAPSULE PO PRN ×2 (09:08→16:25)
[2018-09-09] MEDS: THIAMINE HCL 100MG TABLET PO SCH (09:08)
[2018-09-09] MEDS: METOPROLOL TARTRATE 50MG TABLET PO SCH ×2 (09:09→20:51)
[2018-09-09] MEDS: DOCUSATE SODIUM 250MG CAPSULE PO SCH (09:11)
[2018-09-09] MEDS: FOLIC ACID 1MG TABLET PO SCH (09:14)
[2018-09-09] MEDS: ASPIRIN 81MG EC TABLET PO SCH (09:14)
[2018-09-09] MEDS: ACETAMINOPHEN 325MG TABLET PO PRN (09:15)
[2018-09-09] MEDS: NIFEDIPINE XL 60MG TAB PO SCH (09:15)
[2018-09-09] MEDS: LOSARTAN POTASSIUM 50 MG TABLET PO SCH ×2 (09:15→20:50)
[2018-09-09 15:06] LABS: CLARITY URINE CLEAR (CLEAR); COLOR URINE YELLOW (YELLOW); KETONES URINE NEGATIVE (NEGATIVE); LEUKOCYTE ESTERASE URINE NEGATIVE (NEGATIVE); NITRITE URINE NEGATIVE (NEGATIVE); OCCULT BLOOD URINE NEGATIVE (NEGATIVE); PROTEIN URINE NEGATIVE (NEGATIVE); UROBILINOGEN URINE 0.2 E.U./dL (0.2-1.0)
[2018-09-09 20:00] VITALS: BP 127/72
[2018-09-09] MEDS: ENOXAPARIN 40MG/0.4ML SYR SUBCUT SCH (20:50)
[2018-09-09 22:18] VITALS: BP 126/61
[2018-09-10] MEDS: IPRATROPIUM/ALBUTEROL 0.5-3(2.5)MG/3ML NEB HHN SCH ×4 (03:00→20:11)
[2018-09-10 06:00] VITALS: BP 137/75
[2018-09-10] MEDS: HYDRALAZINE HCL 50MG TABLET PO SCH ×3 (06:01→22:00)
[2018-09-10] MEDS: ASPIRIN 81MG EC TABLET PO SCH (08:00)
[2018-09-10] MEDS: NIFEDIPINE XL 60MG TAB PO SCH (08:00)
[2018-09-10] MEDS: DOCUSATE SODIUM 100MG CAPSULE PO PRN (08:01)
[2018-09-10] MEDS: MULTIVITAMINS,THER W-MINERALS TABLET PO SCH (08:01)
[2018-09-10] MEDS: FOLIC ACID 1MG TABLET PO SCH (08:01)
[2018-09-10] MEDS: THIAMINE HCL 100MG TABLET PO SCH (08:01)
[2018-09-10] MEDS: LOSARTAN POTASSIUM 50 MG TABLET PO SCH ×2 (08:01→21:06)
[2018-09-10] MEDS: METOPROLOL TARTRATE 50MG TABLET PO SCH ×2 (08:01→21:07)
[2018-09-10] MEDS: FAMOTIDINE 20MG TABLET PO SCH ×2 (08:01→21:06)
[2018-09-10] MEDS: GUAIFENESIN 600MG ER TABLET PO SCH ×2 (08:01→21:06)
[2018-09-10] MEDS: DOCUSATE SODIUM 250MG CAPSULE PO SCH (08:04)
[2018-09-10 08:25] VITALS: BP 155/82
[2018-09-10 20:00] VITALS: BP 156/81
[2018-09-10] MEDS: ENOXAPARIN 40MG/0.4ML SYR SUBCUT SCH (21:07)
[2018-09-11] MEDS: IPRATROPIUM/ALBUTEROL 0.5-3(2.5)MG/3ML NEB HHN SCH ×4 (01:31→21:03)
[2018-09-11] MEDS: HYDRALAZINE HCL 50MG TABLET PO SCH ×3 (05:26→22:00)
[2018-09-11 07:53] VITALS: BP 160/87
[2018-09-11] MEDS: FAMOTIDINE 20MG TABLET PO SCH ×2 (08:19→20:46)
[2018-09-11] MEDS: FOLIC ACID 1MG TABLET PO SCH (08:19)
[2018-09-11] MEDS: MULTIVITAMINS,THER W-MINERALS TABLET PO SCH (08:19)
[2018-09-11] MEDS: GUAIFENESIN 600MG ER TABLET PO SCH ×2 (08:19→20:46)
[2018-09-11] MEDS: LOSARTAN POTASSIUM 50 MG TABLET PO SCH ×2 (08:19→20:46)
[2018-09-11] MEDS: ASPIRIN 81MG EC TABLET PO SCH (08:19)
[2018-09-11] MEDS: NIFEDIPINE XL 60MG TAB PO SCH ×2 (08:19→20:46)
[2018-09-11] MEDS: THIAMINE HCL 100MG TABLET PO SCH (08:19)
[2018-09-11] MEDS: METOPROLOL TARTRATE 50MG TABLET PO SCH ×2 (08:19→20:47)
[2018-09-11] MEDS: DOCUSATE SODIUM 250MG CAPSULE PO SCH (08:19)
[2018-09-11 20:00] VITALS: BP 158/89
[2018-09-11] MEDS: ENOXAPARIN 40MG/0.4ML SYR SUBCUT SCH (20:48)
[2018-09-12] MEDS: IPRATROPIUM/ALBUTEROL 0.5-3(2.5)MG/3ML NEB HHN SCH ×4 (01:14→22:32)
[2018-09-12] MEDS: HYDRALAZINE HCL 50MG TABLET PO SCH ×3 (05:31→23:10)
[2018-09-12 06:50] LABS: BASOPHILS % 0.6 % (0.0-2.0); EOSINOPHILS % 1.7 % (0.0-5.0); HEMATOCRIT. 29.2 % (36.0-48.0); HEMOGLOBIN. 9.7 g/dL (12.0-16.0); MEAN CORPUSCULAR HEMOGLOBIN 27.8 pg (28.0-32.0); MEAN CORPUSCULAR VOLUME 84.2 fL (81.0-99.0); MEAN PLATELET VOLUME 8.3 fl (7.4-10.4); MONOCYTES % 10.6 % (2.0-8.0); NEUTROPHILS % 68.1 % (40.0-76.0); PLATELET 324 x1000/uL (130-400); RED BLOOD CELL COUNT 3.47 mill/uL (4.2-5.4); RED CELL DISTRIBUTION WIDTH 15.9 % (11.6-14.6)
[2018-09-12 07:43] LABS: CHLORIDE 109 mEq/L (98-107)
[2018-09-12 07:56] VITALS: BP 161/90
[2018-09-12] MEDS: ASPIRIN 81MG EC TABLET PO SCH (08:42)
[2018-09-12] MEDS: MULTIVITAMINS,THER W-MINERALS TABLET PO SCH (08:42)
[2018-09-12] MEDS: GUAIFENESIN 600MG ER TABLET PO SCH ×2 (08:42→21:52)
[2018-09-12] MEDS: FAMOTIDINE 20MG TABLET PO SCH ×2 (08:42→21:52)
[2018-09-12] MEDS: DOCUSATE SODIUM 250MG CAPSULE PO SCH (08:42)
[2018-09-12] MEDS: LOSARTAN POTASSIUM 50 MG TABLET PO SCH ×2 (08:42→21:52)
[2018-09-12] MEDS: FOLIC ACID 1MG TABLET PO SCH (08:42)
[2018-09-12] MEDS: METOPROLOL TARTRATE 50MG TABLET PO SCH ×2 (08:42→23:10)
[2018-09-12] MEDS: THIAMINE HCL 100MG TABLET PO SCH (08:42)
[2018-09-12] MEDS: NIFEDIPINE XL 60MG TAB PO SCH ×2 (08:43→21:52)
[2018-09-12] MEDS ORDERED: POTASSIUM CHLORIDE 20MEQ TABLET SR PO NR (10:30)
[2018-09-12 20:00] VITALS: BP 138/63
[2018-09-12] MEDS: ENOXAPARIN 40MG/0.4ML SYR SUBCUT SCH (21:55)
[2018-09-13] MEDS: IPRATROPIUM/ALBUTEROL 0.5-3(2.5)MG/3ML NEB HHN SCH ×3 (02:42→14:08)
[2018-09-13] MEDS: HYDRALAZINE HCL 50MG TABLET PO SCH (06:00)
[2018-09-13] MEDS: FOLIC ACID 1MG TABLET PO SCH (08:52)
[2018-09-13] MEDS: DOCUSATE SODIUM 100MG CAPSULE PO PRN (08:52)
[2018-09-13] MEDS: NIFEDIPINE XL 60MG TAB PO SCH (08:52)
[2018-09-13] MEDS: FAMOTIDINE 20MG TABLET PO SCH (08:53)
[2018-09-13] MEDS: LOSARTAN POTASSIUM 50 MG TABLET PO SCH (08:53)
[2018-09-13] MEDS: METOPROLOL TARTRATE 50MG TABLET PO SCH (08:53)
[2018-09-13] MEDS: GUAIFENESIN 600MG ER TABLET PO SCH (08:53)
[2018-09-13] MEDS: ASPIRIN 81MG EC TABLET PO SCH (08:53)
[2018-09-13] MEDS: MULTIVITAMINS,THER W-MINERALS TABLET PO SCH (08:53)
[2018-09-13] MEDS: THIAMINE HCL 100MG TABLET PO SCH (08:53)
[2018-09-13 08:54] VITALS: BP 156/92
[2018-09-13] MEDS: DOCUSATE SODIUM 250MG CAPSULE PO SCH (08:58)
[2018-09-13 13:15] VITALS: BP 156/92
[2018-09-13 13:16] LABS: CHLORIDE 108 mEq/L (98-107)
== END 2018-09-13 15:06 | disposition home or self-care (01) | DRG 70 ==
PROVIDERS: ADMIT Psychiatry & Neurology Neurology; ATTEND Internal Medicine
PROC: 4A10X4Z Monitoring of Central Nervous Electrical Activity, External Approach (ICD-10-PCS; principal; 2018-09-03)
DX: G93.40 Encephalopathy, unspecified (principal); J69.0 Pneumonitis due to inhalation of food and vomit; N17.0 Acute kidney failure with tubular necrosis; J96.00 Acute respiratory failure, unspecified whether with hypoxia or hypercapnia; R65.20 Severe sepsis without septic shock; A41.59 Other Gram-negative sepsis; J15.0 Pneumonia due to Klebsiella pneumoniae; I42.1 Obstructive hypertrophic cardiomyopathy; M62.82 Rhabdomyolysis; I10 Essential (primary) hypertension; E86.0 Dehydration; E78.5 Hyperlipidemia, unspecified; E87.6 Hypokalemia; F10.10 Alcohol abuse, uncomplicated; F31.9 Bipolar disorder, unspecified; J01.00 Acute maxillary sinusitis, unspecified; I49.3 Ventricular premature depolarization; R00.0 Tachycardia, unspecified; R26.9 Unspecified abnormalities of gait and mobility; R53.81 Other malaise; R73.9 Hyperglycemia, unspecified; Z79.899 Other long term (current) drug therapy
CPT/HCPCS: 36415; 80048; 83735; 92523; 93970; 94640; 97110; 97116; 97162; 97166; 97530; 97535; J1650; J1956; J7620

== ENCOUNTER 2020-02-06 16:37 | Inpatient (IN) | payer MEDICARE, BC, MEDICAID ==
[~2020-02-06] VITALS: Ht 167.6 cm; Wt 78.2 kg
[2020-02-06] MEDS: ASCORBIC ACID 500 MG TABLET PO SCH (02:05)
[2020-02-06] MEDS ORDERED: SODIUM CHLORIDE 0.9% 1,000 ML IV ONE (18:00)
[2020-02-06 18:27] LABS: BASOPHILS % 0.4 % (0.0-2.0); CHLORIDE 113 mEq/L (98-107); EOSINOPHILS % 0.1 % (0.0-5.0); HEMATOCRIT. 33.3 % (36.0-48.0); LYMPHOCYTES % 7.7 % (20.0-50.0); MEAN CORPUSCULAR HEMOGLOBIN 27.3 pg (28.0-32.0); MEAN CORPUSCULAR VOLUME 83.1 fL (81.0-99.0); MEAN PLATELET VOLUME 11.5 fl (7.4-10.4); MONOCYTES % 7.1 % (2.0-8.0); NEUTROPHILS % 84.7 % (40.0-76.0); PLATELET 149 x1000/uL (130-400); RED BLOOD CELL COUNT 4.01 mill/uL (4.2-5.4); RED CELL DISTRIBUTION WIDTH 14.9 % (11.6-14.6)
[2020-02-06 18:32] LABS: INR 1.2; PARTIAL THROMBOPLASTIN TIME 32.8 sec (23.4-31.0); PROTHROMBIN TIME 12.2 sec (9.6-11.0)
[2020-02-06] MEDS ORDERED: LEVOFLOXACIN 750MG PREMIX 150 ML IV ONE (19:30)
[2020-02-06] MEDS ORDERED: ALBUTEROL 6.7GM HFA INHALER ORI PRN (20:30)
[2020-02-06] MEDS ORDERED: NITROGLYCERIN 0.4MG TABLET SL SL PRN (20:30)
[2020-02-06] MEDS ORDERED: MAGNESIUM/ALUMINUM HYDROXIDE/SIMETHICONE 30ML UDC PO PRN (20:30)
[2020-02-06] MEDS ORDERED: ONDANSETRON HCL 4MG/2ML INJ IV PRN (20:30)
[2020-02-06] MEDS ORDERED: GUAIFENESIN 200MG/10ML SUGAR FREE UDC PO PRN (20:30)
[2020-02-06] MEDS ORDERED: DOCUSATE SODIUM 100MG CAPSULE PO PRN (20:30)
[2020-02-06] MEDS ORDERED: ACETAMINOPHEN 325MG TABLET PO PRN ×2 (20:30)
[2020-02-06] MEDS ORDERED: ZOLPIDEM TARTRATE 5MG TABLET PO PRN (20:30)
[2020-02-06] MEDS ORDERED: KETOROLAC 15MG/ML VIAL IV PRN (20:42)
[2020-02-06] MEDS ORDERED: CEFTRIAXONE 1 GM IV SCH (21:00)
[2020-02-06] MEDS: SODIUM CHLORIDE 0.9% 1,000 ML IV SCH (21:20)
[2020-02-06 22:06] LABS: CLARITY URINE TURBID (CLEAR); COLOR URINE DARK YELLOW (YELLOW); KETONES URINE NEGATIVE (NEGATIVE); LEUKOCYTE ESTERASE URINE 3+ (NEGATIVE); NITRITE URINE NEGATIVE (NEGATIVE); OCCULT BLOOD URINE 2+ (NEGATIVE); PROTEIN URINE 1+ (NEGATIVE); SPECIFIC GRAVITY URINE 1.019 (1.005-1.030)
[2020-02-06 22:32] LABS: *AMPHETAMINES SCREEN URINE NEGATIVE (NEGATIVE); *BARBITURATES SCREEN URINE NEGATIVE (NEGATIVE); *BENZODIAZEPINES SCREEN URINE NEGATIVE (NEGATIVE); *COCAINE SCREEN URINE NEGATIVE (NEGATIVE)
[2020-02-06 22:33] LABS: CANNABINOID URINE SCREEN NEGATIVE (NEGATIVE); METHADONE URINE SCREEN NEGATIVE (NEGATIVE); OPIATES URINE SCREEN NEGATIVE (NEGATIVE); PHENCYCLIDINE URINE SCREEN NEGATIVE (NEGATIVE)
[2020-02-06 23:04] LABS: VITAMIN B12 SERUM > 2000.0 pg/mL (211-911)
[2020-02-06 23:52] LABS: CREATINE KINASE 219 IU/L (26-192)
[2020-02-06 23:53] LABS: CREATINE KINASE MB FRACTION < 1.0 ng/mL (0.5-3.6)
[2020-02-07] MEDS ORDERED: CEFTRIAXONE 1,000 MG in DEXTROSE 5% WATER 50 ML IV SCH ×2
[2020-02-07 02:42] VITALS: BP 114/81
[2020-02-07 03:14] VITALS: BP 113/76
[2020-02-07 05:10] LABS: PHOSPHORUS 5.1 mg/dL (2.5-4.9)
[2020-02-07] MEDS: ENOXAPARIN 30MG/0.3ML SYR SUBCUT SCH ×2 (05:11→20:57)
[2020-02-07 05:12] LABS: CREATINE KINASE 196 IU/L (26-192); CREATINE KINASE MB FRACTION < 1.0 ng/mL (0.5-3.6)
[2020-02-07 05:36] LABS: CHLORIDE 113 mEq/L (98-107)
[2020-02-07 06:30] LABS: BASOPHILS % 0.1 % (0.0-2.0); EOSINOPHILS % 0.1 % (0.0-5.0); HEMATOCRIT. 32.1 % (36.0-48.0); HEMOGLOBIN. 10.3 g/dL (12.0-16.0); LYMPHOCYTES % 8.9 % (20.0-50.0); MEAN CORPUSCULAR HEMOGLOBIN 26.9 pg (28.0-32.0); MEAN CORPUSCULAR VOLUME 83.8 fL (81.0-99.0); MEAN PLATELET VOLUME 11.7 fl (7.4-10.4); MONOCYTES % 6.2 % (2.0-8.0); NEUTROPHILS % 84.7 % (40.0-76.0); PLATELET 129 x1000/uL (130-400); RED BLOOD CELL COUNT 3.83 mill/uL (4.2-5.4); RED CELL DISTRIBUTION WIDTH 15.2 % (11.6-14.6)
[2020-02-07] MEDS: SODIUM CHLORIDE 0.9% 1,000 ML IV SCH ×2 (07:38→20:58)
[2020-02-07 08:00] VITALS: BP 103/73
[2020-02-07] MEDS: PANTOPRAZOLE SODIUM 40 MG/VIAL IV SCH (09:21)
[2020-02-07] MEDS: ASCORBIC ACID 500 MG TABLET PO SCH ×2 (09:21→20:57)
[2020-02-07] MEDS: ZINC SULFATE 220 MG ( 50 ) CAPSULE PO SCH (09:21)
[2020-02-07] MEDS: ASPIRIN 325MG TABLET PO SCH (09:21)
[2020-02-07] MEDS ORDERED: PNEUMOCOCCAL 23-VAL P-SAC VAC 0.5 ML IM ONE (10:00)
[2020-02-07] MEDS ORDERED: INFLUENZA VACCINE 05/PF 0.5 ML VIAL IM ONE (10:00)
[2020-02-07 12:00] VITALS: BP 101/65
[2020-02-07] MEDS ORDERED: AMLO10TA80 PO (14:08)
[2020-02-07] MEDS ORDERED: LISI-604 PO (14:08)
[2020-02-07] MEDS ORDERED: MIRT15TA6 PO (14:08)
[2020-02-07] MEDS ORDERED: BACL-141 PO (14:08)
[2020-02-07 20:00] VITALS: BP 133/75
[2020-02-08] VITALS: BP 124/76
[2020-02-08] MEDS: CEFTRIAXONE 1,000 MG in DEXTROSE 5% WATER 50 ML IV SCH (00:18)
[2020-02-08 04:00] VITALS: BP 116/72
[2020-02-08] MEDS: SODIUM CHLORIDE 0.9% 1,000 ML IV SCH ×2 (04:28→15:54)
[2020-02-08 07:08] LABS: BASOPHILS % 0.5 % (0.0-2.0); EOSINOPHILS % 0.7 % (0.0-5.0); HEMATOCRIT. 27.7 % (36.0-48.0); LYMPHOCYTES % 12.5 % (20.0-50.0); MEAN CORPUSCULAR HEMOGLOBIN 27.2 pg (28.0-32.0); MEAN CORPUSCULAR VOLUME 83.6 fL (81.0-99.0); MEAN PLATELET VOLUME 11.7 fl (7.4-10.4); MONOCYTES % 8.5 % (2.0-8.0); NEUTROPHILS % 77.8 % (40.0-76.0); PLATELET 123 x1000/uL (130-400); RED BLOOD CELL COUNT 3.32 mill/uL (4.2-5.4)
[2020-02-08 07:41] LABS: CHLORIDE 118 mEq/L (98-107)
[2020-02-08 07:49] LABS: PHOSPHORUS 3.8 mg/dL (2.5-4.9)
[2020-02-08 08:00] VITALS: BP 140/72
[2020-02-08] MEDS: ZINC SULFATE 220 MG ( 50 ) CAPSULE PO SCH (09:23)
[2020-02-08] MEDS: ASCORBIC ACID 500 MG TABLET PO SCH ×2 (09:23→21:50)
[2020-02-08] MEDS: PANTOPRAZOLE SODIUM 40 MG/VIAL IV SCH (09:23)
[2020-02-08] MEDS: ASPIRIN 325MG TABLET PO SCH (09:23)
[2020-02-08 12:00] VITALS: BP 148/90
[2020-02-08 16:00] VITALS: BP 130/82
[2020-02-08] MEDS: ENOXAPARIN 80MG/0.8ML SYR SUBCUT SCH (17:36)
[2020-02-08 20:00] VITALS: BP 123/74
[2020-02-08] MEDS ORDERED: LEVOFLOXACIN 500MG PREMIX 100 ML IV SCH (20:00)
[2020-02-09] VITALS: BP 126/75
[2020-02-09] MEDS: CEFTRIAXONE 1,000 MG in DEXTROSE 5% WATER 50 ML IV SCH (00:29)
[2020-02-09] MEDS: SODIUM CHLORIDE 0.9% 1,000 ML IV SCH ×3 (03:43→20:43)
[2020-02-09 04:00] VITALS: BP 139/86
[2020-02-09 08:00] VITALS: BP 136/69
[2020-02-09] MEDS: PANTOPRAZOLE SODIUM 40 MG/VIAL IV SCH (09:12)
[2020-02-09] MEDS: ASPIRIN 325MG TABLET PO SCH (09:12)
[2020-02-09] MEDS: ZINC SULFATE 220 MG ( 50 ) CAPSULE PO SCH (09:12)
[2020-02-09] MEDS: ASCORBIC ACID 500 MG TABLET PO SCH ×2 (09:12→20:43)
[2020-02-09] MEDS: ENOXAPARIN 80MG/0.8ML SYR SUBCUT SCH (09:13)
[2020-02-09 12:00] VITALS: BP 118/73
[2020-02-09 13:43] LABS: BASOPHILS % 0.4 % (0.0-2.0); HEMATOCRIT. 33.6 % (36.0-48.0); HEMOGLOBIN. 10.3 g/dL (12.0-16.0); LYMPHOCYTES % 16.5 % (20.0-50.0); MEAN CORPUSCULAR HEMOGLOBIN 27.1 pg (28.0-32.0); MEAN CORPUSCULAR VOLUME 88.4 fL (81.0-99.0); MEAN PLATELET VOLUME 12.5 fl (7.4-10.4); MONOCYTES % 9.5 % (2.0-8.0); NEUTROPHILS % 72.6 % (40.0-76.0); PLATELET 118 x1000/uL (130-400); RED CELL DISTRIBUTION WIDTH 16.1 % (11.6-14.6)
[2020-02-09 16:00] VITALS: BP 157/95
[2020-02-09 21:13] VITALS: BP 156/88
[2020-02-10] VITALS: BP 152/91
[2020-02-10] MEDS: CEFTRIAXONE 1,000 MG in DEXTROSE 5% WATER 50 ML IV SCH (00:13)
[2020-02-10 04:00] VITALS: BP 174/104
[2020-02-10] MEDS: CLONIDINE 0.1MG TABLET PO PRN (04:25)
[2020-02-10] MEDS: SODIUM CHLORIDE 0.9% 1,000 ML IV SCH ×2 (05:04→15:59)
[2020-02-10 06:30] LABS: BASOPHILS % 0.6 % (0.0-2.0); HEMATOCRIT. 29.1 % (36.0-48.0); HEMOGLOBIN. 9.6 g/dL (12.0-16.0); LYMPHOCYTES % 16.1 % (20.0-50.0); MEAN CORPUSCULAR HEMOGLOBIN 26.9 pg (28.0-32.0); MEAN CORPUSCULAR VOLUME 81.8 fL (81.0-99.0); MEAN PLATELET VOLUME 11.4 fl (7.4-10.4); MONOCYTES % 7.9 % (2.0-8.0); NEUTROPHILS % 74.4 % (40.0-76.0); PLATELET 148 x1000/uL (130-400); RED BLOOD CELL COUNT 3.55 mill/uL (4.2-5.4); RED CELL DISTRIBUTION WIDTH 14.8 % (11.6-14.6)
[2020-02-10 06:53] LABS: CHLORIDE 117 mEq/L (98-107)
[2020-02-10 08:00] VITALS: BP 156/95
[2020-02-10] MEDS: FAMOTIDINE 20MG/2ML VIAL IV SCH (08:16)
[2020-02-10] MEDS: ASCORBIC ACID 500 MG TABLET PO SCH ×2 (08:16→20:17)
[2020-02-10] MEDS: ZINC SULFATE 220 MG ( 50 ) CAPSULE PO SCH (08:16)
[2020-02-10] MEDS: ASPIRIN 325MG TABLET PO SCH (08:16)
[2020-02-10] MEDS: ENOXAPARIN 80MG/0.8ML SYR SUBCUT SCH ×2 (08:17→20:18)
[2020-02-10] MEDS ORDERED: POTASSIUM CHLORIDE 20MEQ TABLET SR PO SCH (10:00)
[2020-02-10 12:00] VITALS: BP 137/89
[2020-02-10 16:00] VITALS: BP 153/98
[2020-02-10] MEDS: LEVOFLOXACIN 500MG PREMIX 100 ML IV SCH (17:15)
[2020-02-10 20:00] VITALS: BP 145/94
[2020-02-11] VITALS (8 sets, daily range): BP systolic 136–170; BP diastolic 86–100
[2020-02-11] MEDS: CEFTRIAXONE 1,000 MG in DEXTROSE 5% WATER 50 ML IV SCH ×2 (01:16→23:47)
[2020-02-11] MEDS: SODIUM CHLORIDE 0.9% 1,000 ML IV SCH ×3 (01:17→21:44)
[2020-02-11] MEDS: FAMOTIDINE 20MG/2ML VIAL IV SCH (08:48)
[2020-02-11] MEDS: ENOXAPARIN 80MG/0.8ML SYR SUBCUT SCH (08:48)
[2020-02-11] MEDS: ASPIRIN 325MG TABLET PO SCH (08:49)
[2020-02-11] MEDS: ZINC SULFATE 220 MG ( 50 ) CAPSULE PO SCH (08:49)
[2020-02-11] MEDS: ASCORBIC ACID 500 MG TABLET PO SCH ×2 (08:49→21:44)
[2020-02-11] MEDS: CLONIDINE 0.1MG TABLET PO PRN ×2 (13:42→21:44)
[2020-02-11] MEDS: LEVOFLOXACIN 500MG PREMIX 100 ML IV SCH (17:47)
[2020-02-12] VITALS: BP 147/84
[2020-02-12 04:00] VITALS: BP 153/97
[2020-02-12 06:38] LABS: BASOPHILS % 0.4 % (0.0-2.0); EOSINOPHILS % 1.5 % (0.0-5.0); HEMATOCRIT. 31.9 % (36.0-48.0); HEMOGLOBIN. 10.5 g/dL (12.0-16.0); LYMPHOCYTES % 14.2 % (20.0-50.0); MEAN CORPUSCULAR VOLUME 81.8 fL (81.0-99.0); MONOCYTES % 8.5 % (2.0-8.0); NEUTROPHILS % 75.4 % (40.0-76.0); PLATELET 177 x1000/uL (130-400); RED CELL DISTRIBUTION WIDTH 15.3 % (11.6-14.6)
[2020-02-12 06:50] LABS: CHLORIDE 113 mEq/L (98-107)
[2020-02-12 06:59] LABS: PHOSPHORUS 2.4 mg/dL (2.5-4.9)
[2020-02-12] MEDS: SODIUM CHLORIDE 0.9% 1,000 ML IV SCH ×2 (07:42→17:05)
[2020-02-12 08:00] VITALS: BP 130/62
[2020-02-12] MEDS: ASPIRIN 325MG TABLET PO SCH (08:00)
[2020-02-12] MEDS: FAMOTIDINE 20MG/2ML VIAL IV SCH (08:00)
[2020-02-12] MEDS: ZINC SULFATE 220 MG ( 50 ) CAPSULE PO SCH (08:00)
[2020-02-12] MEDS: ASCORBIC ACID 500 MG TABLET PO SCH ×2 (08:00→22:34)
[2020-02-12] MEDS: ENOXAPARIN 40MG/0.4ML SYR SUBCUT SCH (08:00)
[2020-02-12 12:00] VITALS: BP_SYST 147; BP_DIAS 88; BP_DIAS 92
[2020-02-12 16:00] VITALS: BP 148/86
[2020-02-12] MEDS: LEVOFLOXACIN 500MG PREMIX 100 ML IV SCH (17:05)
[2020-02-12] MEDS ORDERED: POTASSIUM PHOS,M-BASIC-D-BASIC 15 MMOL in DEXT 5% WATER 245 ML IV SCH (18:00)
[2020-02-12] MEDS ORDERED: MAGNESIUM 4 G PREMIX 100 ML IV NR (19:00)
[2020-02-12 20:00] VITALS: BP 150/89
[2020-02-13] VITALS (11 sets, daily range): BP systolic 130–189; BP diastolic 74–106
[2020-02-13] MEDS: SODIUM CHLORIDE 0.9% 1,000 ML IV SCH ×3 (03:00→23:35)
[2020-02-13 06:10] LABS: BASOPHILS % 0.4 % (0.0-2.0); CHLORIDE 110 mEq/L (98-107); HEMATOCRIT. 28.4 % (36.0-48.0); HEMOGLOBIN. 9.4 g/dL (12.0-16.0); LYMPHOCYTES % 12.5 % (20.0-50.0); MEAN CORPUSCULAR HEMOGLOBIN 27.1 pg (28.0-32.0); MEAN PLATELET VOLUME 11.3 fl (7.4-10.4); MONOCYTES % 6.9 % (2.0-8.0); NEUTROPHILS % 77.2 % (40.0-76.0); PLATELET 153 x1000/uL (130-400); RED BLOOD CELL COUNT 3.47 mill/uL (4.2-5.4); RED CELL DISTRIBUTION WIDTH 15.2 % (11.6-14.6)
[2020-02-13 06:17] LABS: PHOSPHORUS 2.6 mg/dL (2.5-4.9)
[2020-02-13] MEDS: ENOXAPARIN 40MG/0.4ML SYR SUBCUT SCH (08:47)
[2020-02-13] MEDS: ASPIRIN 325MG TABLET PO SCH (08:47)
[2020-02-13] MEDS ORDERED: SODIUM BICARBONATE 4% (2.4MEQ) 5ML VIAL IV ONE (08:48)
[2020-02-13] MEDS ORDERED: LIDOCAINE HCL 1% 20ML VIAL (Pyxis) INJ ONE (08:48)
[2020-02-13] MEDS ORDERED: IOHEXOL-300 100 ML BOTTLE ONE (08:50)
[2020-02-13] MEDS: ASCORBIC ACID 500 MG TABLET PO SCH ×2 (10:44→23:35)
[2020-02-13] MEDS: ZINC SULFATE 220 MG ( 50 ) CAPSULE PO SCH (10:44)
[2020-02-13] MEDS: FAMOTIDINE 20MG/2ML VIAL IV SCH (10:44)
[2020-02-13] MEDS: ACETAMINOPHEN 650MG/20.3ML UDC PO PRN ×2 (10:44→18:11)
[2020-02-13] MEDS: LEVOFLOXACIN 500MG PREMIX 100 ML IV SCH (18:11)
[2020-02-14] VITALS (7 sets, daily range): BP systolic 101–151; BP diastolic 55–90
[2020-02-14] MEDS: FAMOTIDINE 20MG/2ML VIAL IV SCH (09:54)
[2020-02-14] MEDS: ASPIRIN 325MG TABLET PO SCH (09:54)
[2020-02-14] MEDS: ZINC SULFATE 220 MG ( 50 ) CAPSULE PO SCH (09:55)
[2020-02-14] MEDS: SODIUM CHLORIDE 0.9% 1,000 ML IV SCH ×2 (09:55→19:00)
[2020-02-14] MEDS: ENOXAPARIN 40MG/0.4ML SYR SUBCUT SCH (09:55)
[2020-02-14] MEDS: ASCORBIC ACID 500 MG TABLET PO SCH ×2 (09:55→21:49)
[2020-02-14] MEDS ORDERED: IPRATROPIUM/ALBUTEROL 0.5-3(2.5)MG/3ML NEB HHN PRN (13:30)
[2020-02-14] MEDS ORDERED: GUAIFENESIN-DM 200MG-20MG/10ML UDC PO PRN (13:30)
[2020-02-14] MEDS ORDERED: LEVOFLOXACIN 500MG TABLET PO SCH (18:00)
[2020-02-15] VITALS: BP 132/85
[2020-02-15 04:00] VITALS: BP 148/88
[2020-02-15] MEDS: SODIUM CHLORIDE 0.9% 1,000 ML IV SCH ×2 (05:57→15:48)
[2020-02-15 08:00] VITALS: BP 137/90
[2020-02-15] MEDS: ENOXAPARIN 40MG/0.4ML SYR SUBCUT SCH (08:37)
[2020-02-15] MEDS: ZINC SULFATE 220 MG ( 50 ) CAPSULE PO SCH (08:37)
[2020-02-15] MEDS: ASPIRIN 325MG TABLET PO SCH (08:37)
[2020-02-15] MEDS: ASCORBIC ACID 500 MG TABLET PO SCH ×2 (08:37→21:53)
[2020-02-15] MEDS: TRAMADOL 50MG TABLET PO PRN (08:37)
[2020-02-15] MEDS: FAMOTIDINE 20MG/2ML VIAL IV SCH (08:37)
[2020-02-15 12:00] VITALS: BP 132/84
[2020-02-15 16:00] VITALS: BP 154/90
[2020-02-15 20:00] VITALS: BP 121/81
[2020-02-16] VITALS: BP 131/86
[2020-02-16] MEDS: SODIUM CHLORIDE 0.9% 1,000 ML IV SCH ×3 (01:00→20:25)
[2020-02-16 04:00] VITALS: BP 125/80
[2020-02-16 08:00] VITALS: BP 142/92
[2020-02-16] MEDS: FAMOTIDINE 20MG/2ML VIAL IV SCH (09:12)
[2020-02-16] MEDS: ASPIRIN 325MG TABLET PO SCH (09:12)
[2020-02-16] MEDS: ASCORBIC ACID 500 MG TABLET PO SCH ×2 (09:12→20:23)
[2020-02-16] MEDS: ZINC SULFATE 220 MG ( 50 ) CAPSULE PO SCH (09:12)
[2020-02-16] MEDS: ENOXAPARIN 40MG/0.4ML SYR SUBCUT SCH (09:12)
[2020-02-16] MEDS: TRAMADOL 50MG TABLET PO PRN ×2 (09:13→20:24)
[2020-02-16 12:00] VITALS: BP 150/87
[2020-02-16 16:00] VITALS: BP 147/83
[2020-02-16 20:00] VITALS: BP 144/87
[2020-02-17] VITALS: BP 155/97
[2020-02-17 04:00] VITALS: BP 156/104
[2020-02-17] MEDS: CLONIDINE 0.1MG TABLET PO PRN ×2 (05:56→16:55)
[2020-02-17] MEDS: SODIUM CHLORIDE 0.9% 1,000 ML IV SCH ×2 (06:36→17:03)
[2020-02-17 08:00] VITALS: BP 153/78
[2020-02-17] MEDS: ASPIRIN 325MG TABLET PO SCH (09:21)
[2020-02-17] MEDS: ASCORBIC ACID 500 MG TABLET PO SCH ×2 (09:21→21:33)
[2020-02-17] MEDS: ENOXAPARIN 40MG/0.4ML SYR SUBCUT SCH (09:22)
[2020-02-17] MEDS: ZINC SULFATE 220 MG ( 50 ) CAPSULE PO SCH (09:22)
[2020-02-17] MEDS: FAMOTIDINE 20MG/2ML VIAL IV SCH (09:23)
[2020-02-17] MEDS: TRAMADOL 50MG TABLET PO PRN ×2 (09:48→17:03)
[2020-02-17 12:00] VITALS: BP 141/81
[2020-02-17 16:00] VITALS: BP 167/105
[2020-02-17 20:00] VITALS: BP 151/76
[2020-02-18] VITALS: BP 168/92
[2020-02-18] MEDS: TRAMADOL 50MG TABLET PO PRN ×3 (01:58→16:59)
[2020-02-18] MEDS: CLONIDINE 0.1MG TABLET PO PRN ×2 (01:59→16:57)
[2020-02-18] MEDS: SODIUM CHLORIDE 0.9% 1,000 ML IV SCH ×2 (02:19→12:56)
[2020-02-18 04:00] VITALS: BP 150/86
[2020-02-18 08:00] VITALS: BP 150/87
[2020-02-18] MEDS: FAMOTIDINE 20MG/2ML VIAL IV SCH (08:18)
[2020-02-18] MEDS: ASCORBIC ACID 500 MG TABLET PO SCH ×2 (08:18→22:00)
[2020-02-18] MEDS: ZINC SULFATE 220 MG ( 50 ) CAPSULE PO SCH (08:18)
[2020-02-18] MEDS: ASPIRIN 325MG TABLET PO SCH (08:19)
[2020-02-18] MEDS: ENOXAPARIN 40MG/0.4ML SYR SUBCUT SCH (08:27)
[2020-02-18 12:00] VITALS: BP 159/86
[2020-02-18 16:00] VITALS: BP 175/98
[2020-02-18 20:00] VITALS: BP 146/79
[2020-02-18] MEDS: ACETAMINOPHEN 650MG/20.3ML UDC PO PRN (22:00)
[2020-02-19] VITALS: BP 169/98
[2020-02-19 04:00] VITALS: BP 111/81
[2020-02-19] MEDS: CLONIDINE 0.1MG TABLET PO PRN (07:59)
[2020-02-19 08:00] VITALS: BP 183/98
[2020-02-19] MEDS: ASPIRIN 325MG TABLET PO SCH (08:09)
[2020-02-19] MEDS: FAMOTIDINE 20MG/2ML VIAL IV SCH (08:09)
[2020-02-19] MEDS: ASCORBIC ACID 500 MG TABLET PO SCH ×2 (08:10→23:01)
[2020-02-19] MEDS: ZINC SULFATE 220 MG ( 50 ) CAPSULE PO SCH (08:10)
[2020-02-19] MEDS: ENOXAPARIN 40MG/0.4ML SYR SUBCUT SCH (08:13)
[2020-02-19] MEDS: SODIUM CHLORIDE 0.9% 1,000 ML IV SCH ×2 (09:00→18:09)
[2020-02-19 12:00] VITALS: BP 152/76
[2020-02-19 16:00] VITALS: BP 151/52
[2020-02-19] MEDS: ACETAMINOPHEN 650MG/20.3ML UDC PO PRN (17:14)
[2020-02-19 20:00] VITALS: BP 128/79
[2020-02-20] VITALS: BP 150/87
[2020-02-20 04:00] VITALS: BP 155/89
[2020-02-20] MEDS: SODIUM CHLORIDE 0.9% 1,000 ML IV SCH ×2 (06:41→15:11)
[2020-02-20 08:00] VITALS: BP 152/90
[2020-02-20] MEDS: ENOXAPARIN 40MG/0.4ML SYR SUBCUT SCH (09:52)
[2020-02-20] MEDS: ASCORBIC ACID 500 MG TABLET PO SCH ×2 (09:53→21:37)
[2020-02-20] MEDS: FAMOTIDINE 20MG/2ML VIAL IV SCH (09:53)
[2020-02-20] MEDS: ASPIRIN 325MG TABLET PO SCH (09:53)
[2020-02-20] MEDS: ZINC SULFATE 220 MG ( 50 ) CAPSULE PO SCH (09:53)
[2020-02-20 12:00] VITALS: BP 122/78
[2020-02-20] MEDS: ACETAMINOPHEN 650MG/20.3ML UDC PO PRN (15:19)
[2020-02-20 16:00] VITALS: BP 126/92
[2020-02-20 20:00] VITALS: BP 136/78
[2020-02-21] VITALS: BP 162/88
[2020-02-21] MEDS: SODIUM CHLORIDE 0.9% 1,000 ML IV SCH ×2 (00:47→21:48)
[2020-02-21 04:00] VITALS: BP 169/96
[2020-02-21] MEDS: CLONIDINE 0.1MG TABLET PO PRN (04:23)
[2020-02-21 08:00] VITALS: BP 146/80
[2020-02-21] MEDS: ASCORBIC ACID 500 MG TABLET PO SCH ×2 (09:08→21:48)
[2020-02-21] MEDS: FAMOTIDINE 20MG/2ML VIAL IV SCH (09:08)
[2020-02-21] MEDS: ZINC SULFATE 220 MG ( 50 ) CAPSULE PO SCH (09:08)
[2020-02-21] MEDS: ASPIRIN 325MG TABLET PO SCH (09:08)
[2020-02-21] MEDS: ENOXAPARIN 40MG/0.4ML SYR SUBCUT SCH (09:34)
[2020-02-21] MEDS: ACETAMINOPHEN 650MG/20.3ML UDC PO PRN ×2 (10:22→17:43)
[2020-02-21 12:00] VITALS: BP 150/86
[2020-02-21 16:00] VITALS: BP 146/84
[2020-02-21 22:28] VITALS: BP 144/95
[2020-02-22 01:46] VITALS: BP 177/92
[2020-02-22] MEDS: ACETAMINOPHEN 650MG/20.3ML UDC PO PRN (01:48)
[2020-02-22] MEDS: CLONIDINE 0.1MG TABLET PO PRN (01:50)
[2020-02-22 06:43] VITALS: BP 163/92
[2020-02-22 08:00] VITALS: BP 156/84
[2020-02-22] MEDS: FAMOTIDINE 20MG/2ML VIAL IV SCH (09:09)
[2020-02-22] MEDS: ASPIRIN 325MG TABLET PO SCH (09:09)
[2020-02-22] MEDS: ZINC SULFATE 220 MG ( 50 ) CAPSULE PO SCH (09:09)
[2020-02-22] MEDS: ENOXAPARIN 40MG/0.4ML SYR SUBCUT SCH (09:09)
[2020-02-22] MEDS: ASCORBIC ACID 500 MG TABLET PO SCH (09:09)
[2020-02-22] MEDS: SODIUM CHLORIDE 0.9% 1,000 ML IV SCH ×2 (09:10→17:14)
[2020-02-22 12:00] VITALS: BP 156/94
[2020-02-22 16:00] VITALS: BP 102/66
[2020-02-22 17:52] VITALS: BP 102/66
== END 2020-02-22 20:05 | disposition home health service (06) | DRG 871 ==
LOC: ER 16:37 → MICUSO 20:22 → SUPCPDRO 20:25 → 7EST 23:12 → 5WST 02-07 18:52 → 6EST 02-16 14:57
PROVIDERS: ADMIT Internal Medicine; ATTEND Internal Medicine
PROC: 06H03DZ Insertion of Intraluminal Device into Inferior Vena Cava, Percutaneous Approach (ICD-10-PCS; principal; 2020-02-13)
PROC: B5191ZZ Fluoroscopy of Inferior Vena Cava using Low Osmolar Contrast (ICD-10-PCS; 2020-02-13)
DX: A41.9 Sepsis, unspecified organism (principal); G92 Toxic encephalopathy; J69.0 Pneumonitis due to inhalation of food and vomit; J96.00 Acute respiratory failure, unspecified whether with hypoxia or hypercapnia; N17.0 Acute kidney failure with tubular necrosis; E87.0 Hyperosmolality and hypernatremia; I69.354 Hemiplegia and hemiparesis following cerebral infarction affecting left non-dominant side; N39.0 Urinary tract infection, site not specified; I82.412 Acute embolism and thrombosis of left femoral vein; I82.432 Acute embolism and thrombosis of left popliteal vein; E44.0 Moderate protein-calorie malnutrition; D64.9 Anemia, unspecified; D69.6 Thrombocytopenia, unspecified; E83.39 Other disorders of phosphorus metabolism; E83.41 Hypermagnesemia; E83.52 Hypercalcemia; E86.1 Hypovolemia; I10 Essential (primary) hypertension; R13.10 Dysphagia, unspecified; R62.7 Adult failure to thrive; Z20.828 Contact with and (suspected) exposure to other viral communicable diseases; L89.156 Pressure-induced deep tissue damage of sacral region; L89.026 Pressure-induced deep tissue damage of left elbow; L89.816 Pressure-induced deep tissue damage of head; L89.626 Pressure-induced deep tissue damage of left heel; L89.616 Pressure-induced deep tissue damage of right heel; I73.9 Peripheral vascular disease, unspecified; Z93.1 Gastrostomy status; Z68.27 Body mass index [BMI] 27.0-27.9, adult; Z99.3 Dependence on wheelchair; Z79.899 Other long term (current) drug therapy
CPT/HCPCS: 36415; 37191; 70544; 70553; 71045; 72170; 80048; 80053; 80061; 80305; 81003; 82040; 82550; 82553; 82607; 82746; 83036; 83540; 83550; 83605; 83735; 83880; 84100; 84134; 84484; 85025; 87635; 90686; 90732; 92610; 93005; 93306; 93923; 93970; 99285; C1769; C1880; C1893; C9113; J0696; J1644; J1650; J1885; J1956; J3475; J3490; J7030; J7060; Q9967; A4315